=== PATIENT | male | born 1960 | race Caucasian/White ===

== ENCOUNTER 2021-04-20 09:39 | Outpatient (CLI) | payer OTHER, SELFPAY ==
[2021-04-20 12:59] LABS: ALT 44 U/L (16-63); AST 25 U/L (15-37); Albumin 4.1 g/dL (3.4-5.0); Alkaline Phosphatase 123 U/L (46-116); Anion Gap 11.4 mmol/L (3-11); BUN 21 mg/dL (7-18); Bilirubin, Total 0.6 mg/dL (0.2-1.0); CO2 27.6 mmol/L (21.0-32.0); CREATININE 1.3 mg/dL (0.70-1.30); Calcium 9.4 mg/dL (8.5-10.1); Calculated LDL 81 mg/dL (<100); Chloride 103 mmol/L (98-107); Cholesterol 153 mg/dL (<200); Glucose 183 mg/dL (74-106); HDL Cholesterol 57 mg/dL (40-60); Potassium 3.9 mmol/L (3.5-5.1); Sodium 142 mmol/L (136-145); Total Protein 6.8 g/dL (6.4-8.2); Triglyceride 75 mg/dL (<150)
[2021-04-20 13:04] LABS: Hemoglobin A1C 9.4 % (<5.7)
== END 2021-04-20 09:40 | disposition home or self-care (01) ==
LOC: LOS 09:39
PROVIDERS: PCP Nurse Practitioner Family; Referring Provider Nurse Practitioner Family; Visit Provider Nurse Practitioner Family
DX: Z00.00 Encounter for general adult medical examination without abnormal findings (principal); E10.9 Type 1 diabetes mellitus without complications; Z13.220 Encounter for screening for lipoid disorders
CPT/HCPCS: 36415; 80053; 80061; 83036

== ENCOUNTER 2021-05-09 01:17 | Outpatient (CLI) | payer OTHER, SELFPAY ==
--- NOTE | 2021-05-09 07:00 | DI.RAD_ITS ---
Exam(s) XR SHOULDER RT COMPLETE 2+V EXAM: XR SHOULDER RT COMPLETE 2+V CLINICAL HISTORY: Continued shoulder pain x 2 years,M25.511. TECHNIQUE: 2D digital imaging was performed. COMPARISON: No exams were available for comparison FINDINGS: There is no evidence fracture dislocation or abnormal soft tissue. Mild degenerative changes noted g lenohumeral and AC joints. Bone density is normal. There are no osseous lesions. IMPRESSION: DATA REPOSITORY: RADIATION DOSE DELIVERED:
== END 2021-05-09 01:37 ==
PROVIDERS: PCP Nurse Practitioner Family; Visit Provider Nurse Practitioner Family
DX: M19.011 Primary osteoarthritis, right shoulder (principal)
CPT/HCPCS: 73030

== ENCOUNTER 2021-09-19 01:03 | Outpatient (CLI) | payer OTHER, SELFPAY ==
--- NOTE | 2021-09-19 07:30 | DI.MRI_ITS ---
Exam(s) MR UPPER JOINT RT WO EXAM: MR UPPER JOINT RT WO CLINICAL HISTORY: r shoulder pain,ADHESIVE CAPSULITIS,RT ROTATOR CUFF TEAR,M75.01,M75.02, TECHNIQUE: Multiplanar multisequence MRI of the shoulder was performed. COMPARISON: CR XR SHOULDER RT COMPLETE 2+V from 05/09/2021 CR XR SHOULDER RT COMPLETE 2+V from 05/09/2021 FINDINGS: MARROW:There is no evidence of fracture, Hill-Sachs deformity, nor osseous Bankart lesion. ROTATOR CUFF MECHANISM: AC JOINT/ACROMIUM: There are moderate degenerative changes in the AC joint. Some impingement upon th e supraspinatus at this level. The undersurface of the acromion is flat. There is no undersurface i mpingement hook. There is no evidence of os acromiale. Supraspinatus: Tendinitis signal with superimposed partial thickness tearing. However, there is flui d in the subacromial-subdeltoid bursa, this indicating that there probably is a component of full-thi ckness tearing. There is no retraction musculotendinous junction. No muscle atrophy. Infraspinatus: Intact. No evidence of tear nor muscle atrophy. Teres Minor: Intact. No evidence of tear nor muscle atrophy. Subscapularis/anterior cuff: Intact. No abnormal signal at the level of the multipennate insertional fibers. No significant tear nor atrophy. BICEPS TENDON: Is split tearing of the biceps tendon within the intertubercular groove. Also some fluid within its tendon sheath LABRUM: Some increased intrasubstance signal is seen in the superior labrum posterior to the biceps i nsertion site consistent with element of SLAP tear. Tear does not appear to extend into the posterio r labrum. Anterior labrum appears intact. Inferior labrum appears intact. There is no evidence of paralabral cyst. Inferior glenohumeral ligament appears intact. There is no osseous Bankart lesion GLENOHUMERAL JOINT: Small amount of increased joint fluid extending into medial recess. No loose int ra-articular body. No degenerative subarticular cysts. No evidence of capsular tear. The inferior g lenohumeral ligament is intact. QUADRILATERAL SPACE: No evidence of mass in the region of the axillary nerve and dorsal circumflex hu meral vessels. Visualized triceps muscle at this level appears unremarkable. IMPRESSION: 1. Rotator cuff supraspinatus tendinitis with superimposed partial and small full-thickness tearing. Small amount of fluid evident in the subacromial-subdeltoid bursa. Other components of the rotator cuff mechanism appear intact. There is no muscle atrophy. There is some impingement at the level of the AC joint. 2. There is split tearing of the biceps tendon within the intertubercular groove and there is increas ed signal in the superior labrum consistent with mild SLAP tear. No paralabral cyst. No extension i nto the posterior labrum. No other labral tears nor evidence of bony Bankart lesion. DATA REPOSITORY:
== END 2021-09-19 01:23 ==
PROVIDERS: PCP Nurse Practitioner Family; Visit Provider Student in an Organized Health Care Education/Training Program
DX: M75.01 Adhesive capsulitis of right shoulder (principal); M75.02 Adhesive capsulitis of left shoulder; M75.101 Unspecified rotator cuff tear or rupture of right shoulder, not specified as traumatic; M75.41 Impingement syndrome of right shoulder; S46.211A Strain of muscle, fascia and tendon of other parts of biceps, right arm, initial encounter; S43.431A Superior glenoid labrum lesion of right shoulder, initial encounter
CPT/HCPCS: 73221

== ENCOUNTER 2021-11-16 03:09 | Outpatient (CLI) | payer BC, SELFPAY ==
[2021-11-16 12:00] LABS: Source Nasal/Nares
[2021-11-16 22:26] LABS: COVID-19 PCR Negative (Negative)
== END 2021-11-16 03:10 | disposition home or self-care (01) ==
LOC: LBO 03:09
PROVIDERS: PCP Nurse Practitioner Family; Visit Provider Surgery
DX: Z20.822 Contact with and (suspected) exposure to COVID-19 (principal)
CPT/HCPCS: 87635

== ENCOUNTER 2021-11-18 07:08 | Day surgery (SDC) | payer BC, SELFPAY ==
--- NOTE | 2021-11-17 10:22 | W.COLOREPORT ---
Colonoscopy Report Date of procedure: 11/18/21 Pre-op diagnosis general: CRC screen Post-op diagnosis procedure note: same Surgeon: Vianca Dewitt Anesthesia Type: General:No Airway Complications: None Disposition: same day Prep: Miralax/Dulcolax Retraction Time: 7 mins Procedure Description: After informed consent was obtained the patient was taken to the procedure room and placed in a left decubitous position. Monitors were applied and a time out was done. The patients name, date of , procedure, allergies to medications and metal in their body was reviewed. The patient was then sedated. Once sedated and comfortable a rectal exam was done. External exam was normal. Internal exam revealed a normal sphincter tone and no palpable masses. The scope was then introduced and retrofelexed. no internal hemorrhoids were identified. The scope was then advanced to the cecum w/out difficulty. The TI and appendiceal orifice were identified. The prep was BBPS-2. The scope was then slowly retracted over 7 minutes back into the rectum. There were no polyps, AVMs, or diverticula visualized today. the scope was removed and the patient was woken up and taken back to Same day surgery in stable condition. The patient tolerated the procedure well and there were no immediate complications. Follow up: The patient should follow up in 10 years unless they develop changes in bowel habits or other new gastrointestinal complaints.
--- NOTE | 2021-11-17 11:02 | W.PM.DSUDISC ---
Discharge Plan Disposition Patient Disposition: HOME Condition: Good Discharge Details Reason For Visit: [facility] Scre[facility] Attending Provider: Vianca Dewitt Primary Care Provider: Freddy Gómez Home Meds and New Rx's Prescriptions: No Action hydrochlorothiazide 25 mg tablet 25 mg PO DAILY Qty: 90 RF: 4 simvastatin 40 mg tablet 40 mg PO DAILY Qty: 90 RF: 4 multivitamin [Multiple Vitamins] Tablet 1 tab PO DAILY RF: 0 polyethylene glycol 3350 17 gram/dose powder 238 g PO ONCE Qty: 238 RF: 0 bisacodyl [Dulcolax (bisacodyl)] 5 mg tablet,delayed release (DR/EC) 5 mg PO ONCE Qty: 4 RF: 0 sildenafil (pulm.hypertension) 20 mg tablet 20 mg PO DAILY PRN RF: 0 (DME) FreeStyle Natalie 2 Sherman Misc See Rx Instructions .ROUTE .MEDSUPPLY Qty: 1 RF: 0 (DME) FreeStyle Natalie 2 Sensor Kit See Rx Instructions .ROUTE .MEDSUPPLY Qty: 6 RF: 3 (DME) pen needle, diabetic [Comfort EZ Pen Wilmer] 31 gauge x 1/4 needle See Rx Instructions .ROUTE .MEDSUPPLY Qty: 100 RF: 4 aspirin 81 mg tablet,delayed release (DR/EC) 81 mg PO DAILY RF: 0 Basaglar KwikPen U-100 Insulin 100 unit/mL (3 mL) insulin pen 76 unit subcut QAM Qty: 15 RF: 3 losartan 50 mg tablet 100 mg PO DAILY Qty: 180 RF: 3 Hold Instructions: Home Medication placed on hold at Doctor's office Fiasp FlexTouch U-100 Insulin 100 unit/mL (3 mL) insulin pen 16 unit subcut TID RF: 0 Discharge Instructions Additional Instructions: [facility] Colonoscopy Post-Op Instructions Instructions for Everyone who is given Anesthesia: For your safety, please do the following for the next twenty-four (24) hours: *Do Not operate a motor vehicle (car, truck, motorcycle, etc.) *Do Not drink alcoholic beverages or use any recreational drugs for the first 24 hours or while taking pain medications. The medications in your body may have a reaction that can be dangerous. *Do Not make any important decisions or sign any important papers. Findings:Normal Follow up: repeat in 10 yrs time 1. No lifting over 20 pounds or strenuous activity for the first 24 hours after your procedure. After 24 hours there are no restrictions on your activity but you may feel fatigued for a few days. 2. After you arrive home you may have a light meal and return to your normal diet as you can tolerate it without feeling sick to your stomach. 3. You may have a bloated, gaseous feeling in your belly (abdomen) after a colonoscopy. Passing gas and belching will help. Walking or lying down on your left side with your knees flexed may relieve the discomfort. Call the office at [phone] (Office) or [phone] (Hospital) right away if you notice any of the following: a.Vomiting of blood or ?coffee ground stools?. b.Rectal bleeding 1Tbsp, blood clots or continuous bleeding. c.Severe belly (abdominal) pain. d.A hard distended belly (abdomen) and an inability to pass gas. 4. Please don?t expect to have a normal BM (bowel movement) for 2-3 days after your procedure. 5. If there are questions regarding the findings of your procedure, please contact your doctor 6. If you are unable to contact your doctor with a problem, contact the hospital at [phone]. 7. Continue all your regular medications unless directed otherwise. I understand the above instructions and have no questions. Signature of Patient or Adult Escort Name of Responsible Adult Escort Signature of Nurse Date/Time Activity:: see above Diet:: Carb Counting Discharge Orders Discharge Orders: Discharge Order (Routine); Ordered 11/17/21 Ordered By: Vianca Dewitt DS: Diagnosis Discharge Diagnosis (1) Diabetes type I: Status: Acute (2) Screening for colon cancer: Status: Acute
[2021-11-18 07:24] VITALS: BP 112/66; PULSE 73; RESP 16; TEMP 36.3; O2SAT 98
[2021-11-18] MEDS: Lactated Ringers 1,000 ML 80 ML IV (07:48)
--- NOTE | 2021-11-18 07:58 | W.ANESPRE ---
General Info Date of Service Date Performed: 11/18/21 Height: 6 ft 2 in Weight: 103.8 kg Body Mass Index (BMI): 29.3 Surgical Procedure: Operation Date: 11/18/21 08:20 Proposed Procedures Side Surgeon stoney Dewitt, DO Meds Allergies and Home Medications Allergies Allergy/AdvReac Type Severity Reaction Status Date / Time Penicillins AdvReac Intermediate as a Kid Verified 11/15/21 15:01 no idea what reaction is. Home Medication Medication Instructions Recorded hydrochlorothiazide 25 mg tablet 25 mg PO DAILY #90 tab 04/20/21 simvastatin 40 mg tablet 40 mg PO DAILY #90 tab 04/20/21 pen needle, diabetic 31 gauge x #100 ea 06/03/2110/18 sildenafil (pulm.hypertension) 20 20 mg PO DAILY PRN tab 08/08/21 mg tablet aspirin 81 mg tablet,delayed 81 mg PO DAILY 09/06/21 release insulin glargine 100 unit/mL (3 76 unit SUBCUT QAM #15 ml 10/10/21 mL) subcutaneous pen flash glucose scanning reader #1 ea 11/02/21 flash glucose sensor #6 ea 11/02/21 bisacodyl 5 mg tablet,delayed 5 mg PO ONCE #4 tab 11/03/21 release multivitamin 1 tab PO DAILY 11/03/21 polyethylene glycol 3350 17 238 g PO ONCE #238 g 11/03/21 gram/dose oral powder losartan 50 mg tablet 100 mg PO DAILY #180 tab 11/09/21 insulin aspart (niacinamide) 16 unit SUBCUT TID 11/15/21 [Fiasp FlexTouch U-100 Insulin] Current Visit Medications: Current Medications Generic Name Dose Route Start Last Admin Trade Name Freq PRN Reason Stop Dose Admin Hyoscyamine Sulfate 0.125 mg 11/17/21 11:02 Hyoscyamine 0.125 Mg Sl/Oral/Chew SL DIRECTED PRN Ringer's Solution 1,000 mls @ 80 mls/hr 11/18/21 06:00 11/18/21 07:48 IV 12/12/21 23:59 80 mls/hr INFUSION CONSTANTINE Administration IV Miscellaneous Supplies 1 each 11/18/21 06:00 Iv Access IV 12/12/21 23:59 DIRECTED CONSTANTINE Ondansetron HCl 4 mg 11/17/21 11:02 Ondansetron 4 Mg/2 Ml Vial IVP Q4H PRN PRN Nausea / Vomiting Sodium Chloride 0 ml 11/18/21 06:00 Normal Saline Flush 10 Ml Syr IV 12/12/21 23:59 PRN PRN Sodium Chloride 0 ml 11/18/21 06:00 Normal Saline 10 Ml Vial IJ 12/12/21 23:59 DIRECTED PRN Sterile Water 0 ml 11/18/21 06:00 Water,Injection,Sterile 10 Ml Vial IJ 12/12/21 23:59 DIRECTED PRN PFSH Active Problems Active Problems: Problem Status Onset Code Diabetes type I E10.9 Screening for colon cancer Z12.11 Medical History Medical History Adhesive capsulitis of both shoulders Hyperlipidemia Hypertension Rotator cuff tear, right Uses self-applied continuous glucose monitoring device (L) Upper Posterior arm Medical History Comments:: Pt. reports taking a teaspoon of honey at 05:30am to manage BS Surgical History Surgical History (Updated 11/18/21 @ 07:37 by Sarah Lara RN) History of release of tendon Left wrist Tobacco Smoking/Tobacco Use Status: Never Passive smoking exposure: No Second hand exposure: No Alcohol Alcohol Intake: current Alcohol intake frequency: a few times a month Alcohol type: beer Substance Use Substance use: Never Substance use type: does not use and other Vital Signs and Lab Results Vital Signs Most Recent Vital Signs in EMR: Most Recent Vital Signs Temp Pulse Resp BP Pulse Ox 36.3 C L 73 16 112/66 98 11/18/21 07:24 11/18/21 07:24 11/18/21 07:24 11/18/21 07:24 11/18/21 07:24 Lab Results Blood Type / Crossmatch: No Data to Display Complete Blood Count: No Data to Display Complete Metabolic Panel: Hemoglobin A1c 8.2 % (4.5-5.7) H 11/07/21 08:51 11/07/21 Liver Function Panel: No Data to Display Coagulation Panel: No Data to Display Cardiac Panel: No Data to Display Arterial Blood Gas: No Data to Display Venous Blood Gas: No Data to Display Pancreas Panel: No Data to Display Thyroid Panel: No Data to Display Infectious Disease: Coronavirus (COVID-19)(PCR) Negative (Negative) 11/16/21 08:45 11/16/21 Coronavirus 2019 Source Nasal/Nares 11/16/21 08:45 11/16/21 Blood Cultures: No Data to Display Toxicology Panel: No Data to Display Anesthesia Assessment and Plan Anesthesia History Personal History: No History of Anesthesia Complications Family History: No Family History of Anesthesia Complications Exercise Tolerance Exercise Tolerance: Metabolic Equivalents>4 Pertinent Negatives Pertinent Negatives: No Symptoms of GERD, No Major Cardiovascular Symptoms or Complaints, No Major Pulmonary Symptoms or Complaints and No History of CVA/TIA Cardiac & Pulmonary Exam Cardiac Exam: Normal S1/S2 Heart Sounds Pulmonary Exam: Clear Bilateral Breath Sounds Implantable Cardiac Device Does patient have a Pacemaker or an ICD?: No Airway Exam Known Difficult Airway: No Mallampati Class: 2 Mouth Opening: Normal (> 3cm) Thyromental Distance: Greater than 3 cm Neck Range of Motion: Full ROM Neck Circumference: Normal Teeth Condition: Normal Dentition ASA Classification ASA Score: ASA 2 Emergency Case?: No NPO Status NPO Status: NPO Clears >2 hours, Solids >8 hours Anesthesia Plan Resuscitation Status: Full Code Anesthesia Technique: General Anesthesia Airway Planned: Natural Airway Monitors Used: Standard Monitors Preoperative Comments:: Patient type 1 diabetic.
[2021-11-18 08:20] VITALS: BMI 29.3
[2021-11-18 09:02] VITALS: BP 68/40; PULSE 71; RESP 16; TEMP 36.3; O2SAT 95
--- NOTE | 2021-11-18 09:03 | W.ANESPOSTOP ---
Postoperative Evaluation Date, Time and Location Date Performed: 11/18/21 Time Performed: 09:03 Patient Location: Day Surgery Unit Vital Signs Most Recent Imported Vital Signs: Most Recent Vital Signs Temp Pulse Resp BP Pulse Ox 36.3 C L 73 16 112/66 98 11/18/21 07:24 11/18/21 07:24 11/18/21 07:24 11/18/21 07:24 11/18/21 07:24 Pain Score Most Recent Pain Score: Most Recent Pain Score Pain Level 0 11/18/21 07:24 Assessment Mental Status: Arousable with meaningful communication Airway and Respiratory Function: Patent airway with normal (patient baseline) respiratory exam Cardiovascular Function: Hemodynamically Stable Hydration Status: Adequately Hydrated Nausea & Vomiting: No Nausea or Vomiting Pain: Pt. Denies Any Pain Peripheral Nerve Block: Patient did not receive a nerve block
[2021-11-18 09:28] VITALS: BP 115/69; PULSE 71; RESP 16; TEMP 36; O2SAT 99
== END 2021-11-18 10:15 | disposition home or self-care (01) ==
LOC: SUR 07:08
PROVIDERS: PCP Nurse Practitioner Family; Visit Provider Surgery
PROC: 0DJD8ZZ Inspection of Lower Intestinal Tract, Via Natural or Artificial Opening Endoscopic (ICD-10-PCS; CPT 45378; principal; 2021-11-18 08:15)
DX: Z12.11 Encounter for screening for malignant neoplasm of colon (principal); E10.9 Type 1 diabetes mellitus without complications; I10 Essential (primary) hypertension; E78.5 Hyperlipidemia, unspecified
CPT/HCPCS: 45378

== ENCOUNTER 2022-07-21 01:22 | Outpatient (CLI) | payer BC, SELFPAY ==
[2022-07-21 12:23] LABS: CREATININE 1.4 mg/dL (0.70-1.30); Potassium 3.6 mmol/L (3.5-5.1)
== END 2022-07-21 01:23 | disposition home or self-care (01) ==
LOC: LOS 01:22
PROVIDERS: PCP Nurse Practitioner Family; Visit Provider Nurse Practitioner Family
DX: E10.9 Type 1 diabetes mellitus without complications (principal); I10 Essential (primary) hypertension
CPT/HCPCS: 36415; 82565; 84132

== ENCOUNTER 2023-12-25 04:22 | Outpatient (CLI) | payer BC, SELFPAY ==
[2023-12-25 13:08] LABS: Hemoglobin A1C 8.2 % (<5.7)
== END 2023-12-25 04:23 | disposition home or self-care (01) ==
LOC: LOS 04:22
PROVIDERS: PCP Nurse Practitioner Family; Visit Provider Nurse Practitioner Family
DX: E10.9 Type 1 diabetes mellitus without complications (principal)
CPT/HCPCS: 36415; 83036

== ENCOUNTER 2024-03-28 01:56 | Outpatient (CLI) | payer BC, SELFPAY ==
[2024-03-28 12:46] LABS: ALT 32 U/L (16-63); AST 18 U/L (15-37); Albumin 4.1 g/dL (3.4-5.0); Alkaline Phosphatase 118 U/L (46-116); Anion Gap 9.5 mmol/L (3-11); BUN 17 mg/dL (7-18); Bilirubin, Total 0.5 mg/dL (0.2-1.0); CO2 29.5 mmol/L (21.0-32.0); CREATININE 1.6 mg/dL (0.70-1.30); Calcium 10.1 mg/dL (8.5-10.1); Chloride 99 mmol/L (98-107); Estimated GFR 48.72 (mL/min/1.73m2); Glucose 187 mg/dL (74-106); Potassium 3.3 mmol/L (3.5-5.1); Sodium 138 mmol/L (136-145); Total Protein 7.3 g/dL (6.4-8.2)
[2024-03-28 13:07] LABS: COMMENT (LAB VIEW ONLY) 152.16 mg/dL; Microalb ug/mg Crea 3.9 ug/mg Cr
== END 2024-03-28 01:57 | disposition home or self-care (01) ==
LOC: LOS 01:57
PROVIDERS: PCP Nurse Practitioner Family; Visit Provider Nurse Practitioner Family
DX: E10.9 Type 1 diabetes mellitus without complications (principal)
CPT/HCPCS: 36415; 80053; 82043; 82570

== ENCOUNTER 2024-06-20 01:17 | Outpatient (CLI) | payer BC, SELFPAY ==
[2024-06-20 07:29] LABS: Hemoglobin A1C 8.7 % (<5.7)
[2024-06-20 08:01] LABS: Anion Gap 6.8 mmol/L (3-11); BUN 15 mg/dL (7-18); CO2 31.2 mmol/L (21.0-32.0); CREATININE 1.4 mg/dL (0.70-1.30); Calcium 9.3 mg/dL (8.5-10.1); Calculated LDL 51 mg/dL (<100); Chloride 102 mmol/L (98-107); Cholesterol 123 mg/dL (<200); Estimated GFR 57.18 (mL/min/1.73m2); Glucose 124 mg/dL (74-106); HDL Cholesterol 53 mg/dL (40-60); Potassium 3.2 mmol/L (3.5-5.1); Sodium 140 mmol/L (136-145); Triglyceride 99 mg/dL (<150)
== END 2024-06-20 01:18 | disposition home or self-care (01) ==
LOC: LBO 01:17
PROVIDERS: PCP Nurse Practitioner Family; Visit Provider Nurse Practitioner Family
DX: E87.6 Hypokalemia (principal); Z13.1 Encounter for screening for diabetes mellitus; E10.9 Type 1 diabetes mellitus without complications; Z13.220 Encounter for screening for lipoid disorders; E78.2 Mixed hyperlipidemia
CPT/HCPCS: 36415; 80048; 80061; 83036

== ENCOUNTER 2024-09-08 02:29 | Outpatient (CLI) | payer BC, SELFPAY ==
[2024-09-08 07:37] LABS: Hemoglobin A1C 9.1 % (<5.7)
[2024-09-08 08:26] LABS: BUN 22 mg/dL (7-18); CREATININE 1.6 mg/dL (0.70-1.30); Calcium 9.7 mg/dL (8.5-10.1); Chloride 98 mmol/L (98-107); Estimated GFR 48.72 (mL/min/1.73m2); Glucose 259 mg/dL (74-106); Potassium 3.8 mmol/L (3.5-5.1); Sodium 135 mmol/L (136-145)
== END 2024-09-08 02:30 | disposition home or self-care (01) ==
LOC: LBO 02:29
PROVIDERS: PCP Nurse Practitioner Family; Visit Provider Nurse Practitioner Family
DX: E10.9 Type 1 diabetes mellitus without complications (principal); E87.6 Hypokalemia; Z51.81 Encounter for therapeutic drug level monitoring
CPT/HCPCS: 36415; 80048; 83036

== ENCOUNTER 2024-12-15 16:38 | Emergency (ER) | payer BC, SELFPAY ==
[2024-12-15] VITALS (98 sets, daily range): BP systolic 59–141; BP diastolic 33–76; PULSE 62–91; RESP 13–47; TEMP 30.2–31.3; O2SAT 83–100
--- NOTE | 2024-12-15 16:30 | RT.EKG_ITS ---
APPROVED REPORT Exam: Resting ECG Reason for Exam: [facility] Patient Location: E HR:65 bpm ECG Measurements Heart Rate 65 AXIS ND 189 P 0 QRSd 125 QRS 61 QT 464 T [id number] QTc 476 Conclusion Sinus rhythm...normal P axis, V-rate 60- 99 Atrial premature complex...SV complex w/ short R-R interval Nonspecific intraventricular conduction delay...QRSd >115mS, not LBBB/RBBB Repol abnrm suggests ischemia, diffuse leads...ST-T neg, ant/lat/inf
[2024-12-15] MEDS: Calcium Gluconate 4.65 MEQ/10 ML VIAL 4.65 MG IVP ×2 (16:36→16:50)
[2024-12-15] MEDS: Sodium Bicarbonate 50 MEQ/50 ML SYR IVP (16:37)
[2024-12-15] MEDS: Succinylcholine 200 MG/10 ML VIAL 100 MG IVP (16:42)
--- NOTE | 2024-12-15 16:45 | ED.GENADUL_ITS ---
Discharge Plan Disposition Patient Disposition: Transfer-Acute Inpatient Care Specific Acute Inpt Facility: [facility] [[email or web address]] Condition: Critical Discharge Details Clinical Impression: Diabetic keto-acidosis, Acute hyperkalemia, Cardiac asystole, Metabolic acidosis, Respiratory arrest, Diabetes type I, Acute renal failure (ARF) Primary Care Provider: Freddy Gómez ED Provider: Iván Toure Home Meds and New Rx's Prescriptions: No Action multivitamin [Multiple Vitamins] Tablet 1 tab PO DAILY (DME) FreeStyle Natalie 2 Carlisle Misc See Rx Instructions .ROUTE .MEDSUPPLY Qty: 1 0RF Rx Instructions: As directed (DME) pen needle, diabetic [Comfort EZ Pen Dalton] 31 gauge x 1/4 needle See Rx Instructions .Route Qty: 100 6RF Rx Instructions: Injection 4-6x daily as directed (DME) Dexcom G7 Sensor Device See Rx Instructions .Route Qty: 1 12RF Rx Instructions: As directed (DME) Dexcom G7 Wastewater Manager Misc See Rx Instructions .Route Qty: 1 0RF Rx Instructions: As directed aspirin 81 mg tablet,delayed release (DR/EC) 81 mg PO DAILY (DME) pen needle, diabetic [Comfort EZ Pen Dalton] 31 gauge x 1/4 needle See Rx Instructions .ROUTE .MEDSUPPLY Qty: 100 4RF Rx Instructions: Six times daily Jardiance 25 mg tablet 25 mg PO DAILY MDD 25 90 Days Qty: 90 4RF Rx Instructions: Take one 25 mg tablet once daily as directed insulin lispro [Humalog KwikPen Insulin] 100 unit/mL insulin pen 15 unit subcut TID MDD 50 90 Days Qty: 45 4RF Rx Instructions: Inject 15 mL subcutaneously with meals. May adjust as needed. simvastatin 40 mg tablet 40 mg PO DAILY Qty: 90 3RF Ozempic 1 mg/dose (4 mg/3 mL) pen injector 1 mg subcut QWEEK MDD 1.0 28 Days Qty: 3 12RF Rx Instructions: Inject 1.0 mg subcutaneously once weekly as directed (DME) Dexcom G7 Sensor Device See Rx Instructions .Route Qty: 3 12RF Rx Instructions: Apply to rear tricep as directed insulin lispro [Humalog U-100 Insulin] 100 unit/mL solution 120 unit subcut DAILY 90 Days Qty: 11 4RF Rx Instructions: Insulin for Tslim pump. Add insulin to reservoir. insulin lispro [Humalog U-100 Insulin] 100 unit/mL solution 120 unit subcut DAILY 90 Days Qty: 110 4RF Rx Instructions: Insulin for Tandem Tslim Insulin Pump (DME) FreeStyle Natalie 2 Sensor Kit See Rx Instructions .ROUTE .MEDSUPPLY Qty: 6 3RF Rx Instructions: As directed sildenafil (pulm.hypertension) 20 mg tablet 20 mg PO DAILY PRN Qty: 90 3RF Rx Instructions: administer doses at least 4-6 hours apart losartan 50 mg tablet 100 mg PO DAILY Qty: 180 3RF insulin glargine [Lantus Solostar U-100 Insulin] 100 unit/mL (3 mL) insulin pen 80 unit subcut QPM Qty: 75 4RF Rx Instructions: Inject subcutaneously as directed. (DME) Dexcom G7 Sensor Device See Rx Instructions .Route Qty: 3 12RF Rx Instructions: Place sensor on arm as directed hydrochlorothiazide 12.5 mg tablet 12.5 mg PO DAILY 90 Days Qty: 90 4RF Rx Instructions: Take one 12.5 mg tablet by mouth once daily as directed. insulin lispro [Humalog U-100 Insulin] 100 unit/mL solution 80 unit subcut DAILY 90 Days Qty: 80 4RF Rx Instructions: Tslim Pump Insulin @ initial 1.2 unit/hr basal rate with 7.8 g/unit CIR and 30 mg/dL:1 unit CF Discharge Data Discharge Physician: Iván Toure [facility] General Date/Time Provider Initiated Documentation: 12/15/24 16:45 . HPI Narrative: Patient presents via ambulance to the emergency department unresponsive. According to the and the paramedics since the patient who is a type I diabetic who had an insulin pump placed about 3 weeks ago and according to the 10 days ago he start developing flulike symptoms. He then started seeing that the pump was beeping and struck him he had high blood sugar which he thought was quite disturbing so he removed his insulin pump. She also states that he then started urinating and drinking a lot he was not urinating at all. She then said that he got confused yesterday so she called his doctor but she did not have any response and today she noticed he was getting lethargic so around 3:30 PM called the ambulance. Ambulance arrived and found him unresponsive initially with cook enchilada small respirations that were heavily and then he went apneic so they started bagging him and 100% got 2 large bore IVs gave him IV fluids his fingerstick was too high to read and brought into the emergency department when he went into cardiac arrest Related Data Home Medications ?Medication ?Instructions ?Recorded ?Confirmed aspirin 81 mg tablet,delayed 81 mg PO DAILY 09/06/21 12/15/24 release flash glucose scanning reader #1 ea 11/02/21 12/15/24 (FreeStyle Natalie 2 Carlisle) multivitamin (Multiple Vitamins 1 tab PO DAILY 11/03/21 12/15/24 tablet) pen needle, diabetic 31 gauge x #100 ea 05/31/22 12/15/24 14 (Comfort EZ Pen Dalton) flash glucose sensor (FreeStyle #6 ea 10/06/22 12/15/24 Natalie 2 Sensor kit) blood-glucose meter,continuous #1 ea 05/16/23 12/15/24 (Dexcom G7 Wastewater Manager) blood-glucose sensor (Dexcom G7 #1 ea 05/16/23 12/15/24 Sensor device) pen needle, diabetic 31 gauge x #100 ea 05/16/23 12/15/2410/18 (Comfort EZ Pen Dalton) sildenafil (pulm.hypertension) 20 20 mg PO DAILY PRN #90 tabs 11/15/23 12/15/24 mg tablet losartan 50 mg tablet 100 mg (2 x 50 mg) PO DAILY #180 01/16/24 12/15/24 tabs empagliflozin 25 mg tablet 25 mg PO DAILY 90 days #90 tabs 05/08/24 12/15/24 (Jardiance) insulin lispro 100 unit/mL 15 unit (0.15 mL) subcut TID 90 06/18/24 12/15/24 subcutaneous pen (Humalog #45 mL (U-100) Insulin) simvastatin 40 mg tablet 40 mg PO DAILY #90 tabs 06/18/24 12/15/24 insulin glargine 100 unit/mL (3 80 unit (0.8 mL) subcut QPM #75 mL 06/19/24 12/15/24 mL) subcutaneous pen (Lantus Solostar U-100 Insulin) semaglutide 1 mg/dose (4 mg/3 mL) 1 mg (0.75 mL) subcut QWEEK 28 07/16/24 12/15/24 subcutaneous pen injector (Ozempic) days #3 mL blood-glucose sensor (Dexcom G7 #3 ea 09/12/24 12/15/24 Sensor device) blood-glucose sensor (Dexcom G7 #3 ea 09/12/24 12/15/24 Sensor device) hydrochlorothiazide 12.5 mg tablet 12.5 mg PO DAILY 90 days #90 tabs 10/17/24 12/15/24 insulin lispro 100 unit/mL 80 unit (0.8 mL) subcut DAILY 11/18/24 12/15/24 subcutaneous solution (Humalog Insulin for Tandem Tslim Pump 90 U-100 Insulin) days #80 mL insulin lispro 100 unit/mL 120 unit (1.2 mL) subcut DAILY 90 12/05/24 12/15/24 subcutaneous solution (Humalog days #11 mL U-100 Insulin) insulin lispro 100 unit/mL 120 unit (1.2 mL) subcut DAILY 90 12/10/24 12/15/24 subcutaneous solution (Humalog days #110 mL U-100 Insulin) Previous Rx's ?Medication ?Instructions ?Recorded flash glucose scanning reader #1 ea 11/02/21 (FreeStyle Natalie 2 Carlisle) pen needle, diabetic 31 gauge x #100 ea 05/31/22 14 (Comfort EZ Pen Dalton) flash glucose sensor (FreeStyle #6 ea 10/06/22 Natalie 2 Sensor kit) blood-glucose meter,continuous #1 ea 05/16/23 (Dexcom G7 Wastewater Manager) blood-glucose sensor (Dexcom G7 #1 ea 05/16/23 Sensor device) pen needle, diabetic 31 gauge x #100 ea 05/16/23 14 (Comfort EZ Pen Dalton) sildenafil (pulm.hypertension) 20 20 mg PO DAILY PRN #90 tabs 11/15/23 mg tablet losartan 50 mg tablet 100 mg (2 x 50 mg) PO DAILY #180 01/16/24 tabs empagliflozin 25 mg tablet 25 mg PO DAILY 90 days #90 tabs 05/08/24 (Jardiance) insulin lispro 100 unit/mL 15 unit (0.15 mL) subcut TID 90 06/18/24 subcutaneous pen (Humalog KwikPen days #45 mL (U-100) Insulin) simvastatin 40 mg tablet 40 mg PO DAILY #90 tabs 06/18/24 insulin glargine 100 unit/mL (3 80 unit (0.8 mL) subcut QPM #75 mL 06/19/24 mL) subcutaneous pen (Lantus Solostar U-100 Insulin) semaglutide 1 mg/dose (4 mg/3 mL) 1 mg (0.75 mL) subcut QWEEK 28 07/16/24 subcutaneous pen injector (Ozempic) days #3 mL blood-glucose sensor (Dexcom G7 #3 ea 09/12/24 Sensor device) blood-glucose sensor (Dexcom G7 #3 ea 09/12/24 Sensor device) hydrochlorothiazide 12.5 mg tablet 12.5 mg PO DAILY 90 days #90 tabs 10/17/24 insulin lispro 100 unit/mL 80 unit (0.8 mL) subcut DAILY 11/18/24 subcutaneous solution (Humalog Insulin for Tandem Tslim Pump 90 U-100 Insulin) days #80 mL insulin lispro 100 unit/mL 120 unit (1.2 mL) subcut DAILY 90 12/05/24 subcutaneous solution (Humalog days #11 mL U-100 Insulin) insulin lispro 100 unit/mL 120 unit (1.2 mL) subcut DAILY 90 12/10/24 subcutaneous solution (Humalog days #110 mL U-100 Insulin) Allergies Allergy/AdvReac Type Severity Reaction Status Date / Time Penicillins AdvReac Intermediate as a Kid Verified 12/15/24 17:09 no idea what reaction is. Review of Systems Unobtainable due to mental condition Exam Narrative Exam Narrative: Exam; vitals signs as reported above normal severely bradycardic apneic unresponsive Constitutional; unresponsive to painful stimuli General: Unresponsive to painful stimuli cool to the touch hypothermic HEENT: Head: normal to inspection, no palpable skull fracture and normocephalic 2 small superficial wounds in his forehead that according to the are from yesterday when he bumped his head Eyes: : appearance normal, both eyes and all related structures EOM intact bilaterally Pupils: PERRL : conjunctiva normal Direct ophthalmoscopy: normal light reflex, normal conjunctiva, normal visual acuity Ears: Normal TM, normal external canal Nose: normal no rhinorreha Neck no JVD, supple non tender Neck: normal visual inspection, full ROM and no lymphadenopathy Chest: normal inspection of the chest Respiratory : No visible respiratory effort some rales in the left lung base with Ambu bag respirations Cardio Rate: Severely bradycardic rate no murmurs auscultated GI : normal to inspection, normal bowel sounds, soft, non tender, non distended, no organomegaly Back/Spine/ no CVA tenderness Thoracic/Lumbar Spine: no tenderness or deformities Skin no rashes or lesions Neuro: Unresponsive with no response to painful stimuli Extremities, no edema, full range of motion, normal strength : normal Rectal: Course Severely sick patient who came to the emergency department unresponsive who initially had Kussmaul respiration according to paramedics and then became apneic in the emergency department he had a heart rate in the 30s or 40s and on telemetry wide-complex and with suspicion of hyperkalemia besides IV fluids 2 large-bore IVs giving calcium chloride 2 A were given initially and 2 halves of bicarb the patient was intubated using RSI. His oxygen saturation was good and then the patient had a cardiac arrest which is a cyst systole. Bedside ultrasound showed sonographic asystole CPR was started he was given 2 rounds of epinephrine and atropine another 2 ampoules of bicarbonate and then after 10 min obtained a pulse. Norepinephrine drip was initiated and bedside echo was repeated showed a normal heart with contractility with no regional wall abnormalities mostly hyperdynamic. IVC collapsibility confirmed a very dehydrated hypovolemic patient and lung sonography did not show except for some infiltrate and left pleural effusion E-FAST exam does not show any free fluid in the pelvis and the bladder there is almost completely empty, he was continued to be hydrated aggressively with normal saline and later switched with D5 and bicarb due to the recommendations of the ICU attending Reevaluation(s) Time: 16:50 Reevaluation: Patient with now pressures between 180s systolic heart rate in the 70s who has arterial blood gases show a pH of 7.87 with very low bicarb and a very high space axis with normal pO2. IV fluids were continued and insulin drip has been given Time: 19:27 Additional Reevaluation(s): Patient who presented with severe DKA acidotic who required intubation and had a cardiac arrest that successfully was resuscitated with placement pulse he is now receiving IV fluids his blood sugars are still high but his sodium is now 131 his potassium was 4.4. He has been accepted at [facility] [[email or web address]] by the ICU attending who requested 2 more amps of bicarbonate will continue IV fluids with a commendation of D5 with 2 A of bicarb. He is on insulin drip and norepinephrine drip. He is critically ill although moving in the right direction maintaining his blood pressure at 100/70 and his heart rate in the 76 range. He just developed some B-lines in both lung lara as I read the ultrasound of his lung which will be watched to make sure he does not enter pulmonary edema. Consultations Consultation #1: Consulted [facility] who said no capacity for beds Time: 18:10 Consultation #2: Spoke with the ICU attending Dr. Emmanuel Cano who has accepted the patient and give some recommendations of treatment patient will be transferred to the ICU at [facility] [[email or web address]] ultimately via helicopter Time: 18:40 Procedure Airway Management Date of Procedure: 12/15/24 Time of Procedure: 16:38 Patient Consented: Emergent Case Indication: Apnea, Respiratory failure and Reduced level of consciousness Provider that performed the procedure: Iván Toure Mallampati Class: 2 Sedation administered by provider performing procedure: Yes. Induction setup: Pt. evaluated prior to induction, Apneic Oxygenation, Bag Valve Mask Ventilation and Rapid Sequence Induction Ultrasound: Used/Image Saved Airway Type: Intubation Grade: Pre Treatment Medication(indicate dose given): Other (etomidate) Paralytic(indicate dose given): Succinylcholine Gastric Tube: Not Placed Procedure Complications: None Procedure Outcome: Successful Medical Decision Making MDM: Summary: Patient who presented to the emergency department unresponsive went to cardiac arrest most likely from severe hyperkalemia and metabolic acidosis. He was treated initially with CPR but because he went to cardiac arrest which after calcium chloride and bicarbonate amps as well as epinephrine and atropine he was recessively resuscitated. He had been intubated as soon as came to the emergency department for he was unresponsive before he went into cardiac arrest. Aggressive IV fluid hydration, norepinephrine drip, insulin drip were initiated including ampoules of bicarbonate magnesium and calcium chloride. He was given empiric antibiotics but most likely is because of severe DKA and hyperkalemia who has been corrected. He has now been accepted at [facility] [[email or web address]] ICU for transfer. Data Review Analysis All the data on this patient was reviewed by me including laboratory and imaging studies as well as bedside studies performed by me Independent review of Studies Imaging Chest x-ray shows some scant bilateral infiltrates are the POCUS examination shows some B-lines on the left lung field. POCUS shows initially cardiac asystole but then a very strong hyperdynamic heart after resuscitation and norepinephrine and IV fluid hydration there is no regional wall abnormalities most likely hit her cardiac arrest was due to acidosis and hyperkalemia Lab: Labs show an elevated white blood cell count with an elevated BUN to creatinine ratio also initially hyperkalemia which has been correcting and hyponatremia that has been correcting in with her via very high glucose levels initially at 986 also ketones in the urine Risk Stratification: Patient who is severely ill critically ill after cardiac arrest due to severe acidosis and probably DKA will be transferred to a higher level of care with has been accepted at ICU at [facility] [[email or web address]] for further care Differential Diagnosis: 1. Severe hyperkalemia 2. Severe metabolic acidosis cardiac 3.arrest from acidosis and hyperkalemia 4. Diabetic ketoacidosis 5. Metabolic acidosis due to lactic acidosis Consultants: Consulted [facility] that initially did not have a bed and consulted the ICU attending at [facility] [[email or web address]] has accepted the patient and transferred Shared disposition: Family understand the need to transfer the patient out of an [facility] to [facility] [[email or web address]] and have accepted Impression: Medical Records Medical records reviewed: Yes I reviewed the patient's medical records. Lab Data Lab results reviewed: Yes I reviewed the patient's lab results. ECG Data Attestation: I personally reviewed and interpreted this ECG (s) as follows: Prior ECG tracings: available for review Core Measures AMI Core Measures Followed: No Quality:SDOH Health Related Social Needs: 2 No Data to Display Critical Care Time Critical Care Time Critical Care Time: Yes Total Critical Care Time: 85 Attestation: Critical care time postcardiac arrest with severe DKA penetration of the cardiovascular system so transferred to call back after first we need to call the helicopter I do not need to do just if there is a helicopter and he can feel these paperwork for flying so they are not flying to have a helicopter I do not I think they might have to try [facility] first to see if it first okay with [facility] All Active Problems (Updated 12/15/24 @ 20:03 by Iván Toure MD) Acute renal failure (ARF) (Acute) Respiratory arrest (Acute) Metabolic acidosis (Acute) Cardiac asystole (Acute) Acute hyperkalemia (Acute) Diabetic keto-acidosis (Acute) Hypertension (Chronic) Hyperlipidemia (Acute) Normal colonoscopy (Acute) Diabetes type I (Acute) Medical History Uses self-applied continuous glucose monitoring device (L) Upper Posterior arm Adhesive capsulitis of both shoulders Rotator cuff tear, right Surgical History History of colonoscopy (~11/18/21) History of release of tendon Left wrist Family History Mother , 87 Heart disease Father , 76 Diabetes Heart disease Hyperlipidemia Hypertension Sister No problems noted. Daughter No problems noted. Maternal Grandfather , 75 Stomach cancer Paternal Grandfather , 50 Diabetes Maternal Grandmother , 65 Breast cancer Paternal Grandmother , 93 Heart disease Social History Smoking/Tobacco Use Status: Never Second Hand Exposure: No Smoking risk assessment performed?: Yes Alcohol Intake: current Alcohol Intake frequency: a few times a month Alcohol type: beer and hard liquor Drug use: Never Substance use type: does not use and other Adopted: No Caregiver/Support person: No Household members: significant other Housing: house Communication Needs: None Do you need help understanding health information?: Never Pets and animals: Yes Pets and animals: cat(s), dog(s) and horse(s) Sexually active: Yes Do you think of yourself as: straight/heterosexual Current gender identity: male What is your relationship status?: living with partner How often do you talk on the phone with friends or family?: three or more times per week How often do you get together with friends or relatives?: twice per week How often do you attend zoroastrian or anglican services?: 1-3 times per year Do you belong to any clubs or organized social groups?: no Panel score (0-1 are the most socially isolated patients): 2 What type of physical activity do you participate in: walking and weight lifting Duration: 60-90 minutes/day Frequency: daily Lenore/Faith: Faith Special lenore needs: No Agree to transfusion: No Seatbelt use: always Helmet use: Yes Helmet use: always Drive intox or ride w/intox school bus driver/mechanic: No Do you feel safe at home: Yes Do you feel safe in your relationship?: Yes POCUS Exam (ED) Limited Cardiac Exam DATE OF EXAM: 12/15/24 TIME OF EXAM: 14:48 PROVIDER THAT PERFORMED THE STUDY: Iván Toure REASON FOR EXAM: Cardiac arrest VISUALIZED STRUCTURES: Four Chambers, Left atrium, Left ventricle, Right atrium, Right ventricle, Interventricular septum and IVC VIEW OBTAINED: Apical 4-Chamber, Parasternal long-axis and Parasternal short- axis PERTINENT FINDINGS/IMPRESSION: LV dysfunction DIFFERENTIAL DIAGNOSES: cardiac asystole Exam complete Efast Exam DATE OF EXAM: 12/15/24 TIME OF EXAM: 15:00 PROVIDER THAT PEFORMED THE STUDY: Iván Toure IS THIS A REPEAT EXAM DURING THIS ENCOUNTER: no REASON FOR EXAM: Hypotension VISUALIZED STRUCTURES: Hepatorneal space, Pelvis, Pericardium, Perisplenic space, Pleural space/left and Pleural space/right PERTINENT FINDINGS/IMPRESSION: apparent free fluid, hepatorenal space, pelvis and perisplenic space and pneumothorax, left side DIFFERENTIAL DIAGNOSES: IVC flat Limited Transthoracic Echo: Exam complete Limited Abdominal Exam: Exam complete Limited Retroperitoneal Exam: Exam complete TAFOYA Exam DATE OF EXAM: 12/15/24 TIME OF EXAM: 15:30 PROVIDER THAT PERFORMED THE STUDY: Iván Toure IS THIS A REPEAT EXAM DURING THIS ENCOUNTER: Yes, Same provider REASON FOR EXAM: Hypotension VISUALIZED STRUCTURES: Aorta, Bladder, Cardiac Four Chambers, Heart, Inferior Vena Cava, Lung/left side, Lung/right side, Samuel's pouch, Renal artery and Other structures: Echo all, abdomen, pelvis, thorax PERTINENT FINDINGS/IMPRESSION: Pleural effusion, left side and Other (Postcardiac arrest hyperdynamic heart) impression: Hyperdynamic left ventricle postcardiac arrest Echocardiography/Transthoracic Limited Exam: Exam Complete Chest Limited Exam: Exam Complete Abdominal Limited Exam: Exam Complete Retroperitoneal Limited Exam: Exam Complete Limited Thoracic Lung Exam DATE OF EXAM: 12/15/24 TIME OF EXAM: 15:20 PROVIDER THAT PERFORMED THE STUDY: Iván Toure IS THIS A REPEAT EXAM DURING THIS ENCOUNTER: No REASON FOR EXAM: Hypotension VISUALIZED STRUCTURES: right anterior, left anterior, right lateral, left lateral and left posterior PERTINENT FINDINGS/IMPRESSION: B-lines/left side and Left pleural effusion Exam complete Vital Signs & Lab Results Vital Signs Most Recent Vital Signs: Most Recent Vital Signs Temp Pulse Resp BP Pulse Ox 30.9 C L 76 20 99/53 L 90 L 12/15/24 18:43 12/15/24 18:43 12/15/24 19:07 12/15/24 19:07 12/15/24 19:07 Point of Care Results Nursing Point of Care Results: 2 No Data to Display Lab Results 12/15/24 16:50 12/15/24 18:39 Blood Type / Crossmatch: 2 No Data to Display Complete Blood Count: 2 White Blood Count 37.85 10^3/uL (4.4-10.8) H* 12/15/24 16:50 Red Blood Count 3.92 10^6/uL (4.36-5.78) L 12/15/24 16:50 Hemoglobin 11.3 g/dL (13.5-17.5) L 12/15/24 16:50 Hematocrit 41.7 % (40.0-50.0) 12/15/24 16:50 Platelet Count 359 10^3/uL (130-400) 12/15/24 16:50 Complete Metabolic Panel: 2 Sodium 131 mmol/L (136-145) L 12/15/24 18:39 Potassium 4.5 mmol/L (3.5-5.1) 12/15/24 18:39 Chloride 94 mmol/L (98-107) L 12/15/24 18:39 Carbon Dioxide 9.9 mmol/L (21.0-32.0) L 12/15/24 18:39 BUN 62 mg/dL (7-18) H 12/15/24 18:39 Creatinine 3.3 mg/dL (0.70-1.30) H 12/15/24 18:39 Est GFR (CKD-EPI 2020) 20.31 (mL/min/1.73m2) 12/15/24 18:39 Magnesium 2.5 mg/dL (1.8-2.4) H 12/15/24 16:50 Calcium 8.4 mg/dL (8.5-10.1) L 12/15/24 18:39 Albumin 1.9 g/dL (3.4-5.0) L 12/15/24 16:50 Glucose mg/dL (74-106) 12/15/24 18:39 Liver Function Panel: 2 Alanine Aminotransferase (ALT/SGPT) 24 U/L (16-63) 12/15/24 16: 50 Aspartate Amino Transf (AST/SGOT) 53 U/L (15-37) H 12/15/24 16: 50 Coagulation Panel: 2 No Data to Display Cardiac Panel: 2 No Data to Display Arterial Blood Gas: 2 Arterial Blood Gas Sample Site Right Brachial 12/15/24 17:34 Arterial Blood pH 6.87 (7.35-7.45) L* 12/15/24 17:34 Arterial Blood pO2 148 mmHg (80-105) H 12/15/24 17:34 Arterial Blood pCO2 36 mmHg (35-45) 12/15/24 17:34 Arterial Blood Oxygen Saturation 98 % (95-98) 12/15/24 17:34 Arterial Blood HCO3 7 mmol/L (22-26) L 12/15/24 17:34 Arterial Blood Base Excess -27 mmol/L (-2-3) L 12/15/24 17:34 Arterial Blood Total CO2 7 mmol/L (23-27) L 12/15/24 17:34 Venous Blood Gas: 2 Venous Blood pH 6.83 (7.31-7.41) L* 12/15/24 18:39 Venous Blood Partial Pressure O2 65 mmHg 12/15/24 18:39 Venous Blood Partial Pressure CO2 42 mmHg (41-51) 12/15/24 18:3 9 Venous Blood Oxygen Saturation 82 % 12/15/24 18:39 Venous Blood HCO3 7 mmol/L (23-28) L 12/15/24 18:39 Venous Blood Base Excess -27 mmol/L (-2-3) L 12/15/24 18:39 Venous Blood Total Carbon Dioxide 8 mmol/L (24-29) L 12/15/24 1 8:39 Pancreas Panel: 2 Lipase 668 U/L (<78) H 12/15/24 16:50 Thyroid Panel: 2 No Data to Display Infectious Disease: 2 Influenza Virus Type A (PCR) Pending 12/15/24 19:15 Influenza Virus Type B (PCR) Pending 12/15/24 19:15 Respiratory Syncytial Virus (PCR) Pending 12/15/24 19:15 Blood Cultures: 2 No Data to Display Toxicology Panel: 2 No Data to Display Cardiac Arrest/CPR Medical Decision Making Medical decision making narrative: Patient who came in with probably severe hypokalemia and acidosis went to cardiac arrest CPR was initiated was given 2 A of epinephrine and we got spontaneous pulse after calcium chloride and bicarbonate. Bedside echo initially shows sonographic asystole that was recorded and then after successful CPR he came with spontaneous contractility of the heart with no regional abnormalities. Differential Diagnosis cardiac arrest Medical Records Medical records reviewed: Yes I reviewed the patient's medical records. Lab Data Lab results reviewed: Yes I reviewed the patient's lab results. 12/15/24 16:50 12/15/24 18:39 Lab Results 12/15/24 12/15/24 12/15/24 Range/Units 16:50 16:55 17:34 WBC 37.85 H* (4.4-10.8) 10^3/uL RBC 3.92 L (4.36-5.78) 10^6/uL Hgb 11.3 L (13.5-17.5) g/dL Hct 41.7 (40.0-50.0) % MCV 106 H (80-95) fL MCH 28.8 (27.0-33.0) pg MCHC 27.1 L (32.0-36.0) % RDW 13.5 (11.8-14.1) % Plt Count 359 (130-400) 10^3/uL MPV 10.9 (8.0-11.0) fL Immature Gran % See Differential Neutrophils % 73.0 % Band Neutrophils % 3 % Lymphocytes % 7.0 % Atypical Lymphs % 5 % Monocytes % 5.0 % Eosinophils % 0.0 % Basophils % 0.0 % Metamyelocytes % 3 Myelocytes % 4 Nucleated RBC % 0.0 (0.0-0.3) % Absolute Neutrophils 28.77 H (1.2-6.7) 10^3/uL Absolute Lymphocytes 4.54 H (1.2-3.4) 10^3/uL Absolute Monocytes 1.89 H (0.1-0.8) 10^3/uL Absolute Eosinophils 0.00 (0.0-0.7) 10^3/uL Absolute Basophils 0.00 (0.0-0.2) 10^3/uL RBC Morphology See Below Macrocytosis 1+ ABG Sample Site Cancelled Right Brachial ABG pH Cancelled 6.87 L* ABG pCO2 Cancelled 36 ABG pO2 Cancelled 148 H ABG HCO3 Cancelled 7 L ABG Total CO2 Cancelled 7 L ABG O2 Saturation Cancelled 98 ABG Base Excess Cancelled -27 L VBG pH (7.31-7.41) VBG pCO2 (41-51) mmHg VBG pO2 mmHg VBG HCO3 (23-28) mmol/L VBG Total CO2 (24-29) mmol/L VBG O2 Saturation % VBG Base Excess (-2-3) mmol/L Oxygen Liter Flow Cancelled FiO2 Cancelled 100 Sodium 123 L* (136-145) mmol/L Potassium 5.4 H (3.5-5.1) mmol/L Chloride 86 L (98-107) mmol/L Carbon Dioxide 5.2 L (21.0-32.0) mmol/L Anion Gap 32.8 H (3-11) mmol/L BUN 56 H (7-18) mg/dL Creatinine 3.1 H (0.70-1.30) mg/dL Est GFR (CKD-EPI 2020) 21.89 (mL/min/1.73m2) Glucose 987 H* (74-106) mg/dL Calcium 7.6 L (8.5-10.1) mg/dL Magnesium 2.5 H (1.8-2.4) mg/dL Total Bilirubin 0.47 (0.2-1.0) mg/dL AST 53 H (15-37) U/L ALT 24 (16-63) U/L Alkaline Phosphatase 97 (46-116) U/L Total Protein 3.7 L (6.4-8.2) g/dL Albumin 1.9 L (3.4-5.0) g/dL Lipase 668 H (<78) U/L Urine Color (Yellow) Urine Clarity (Clear) Urine pH (5-8) Ur Specific [place] (1.005-1.025) Urine Protein (Neg-Trace) mg/dL Urine Ketones (Negative) mg/dL Urine Blood (Negative) Urine Nitrite (Negative) Urine Bilirubin (Negative) Urine Urobilinogen (Up to 0.2) mg/dL Ur Leukocyte Esterase (Negative) Urine RBC (0-2) HPF Urine WBC (0-5) HPF Ur Epithelial Cells (Negative) HPF Urine Crystals (Negative) HPF Urine Bacteria (Negative) HPF Urine Casts (Negative) LPF Urine Mucus (Negative) Ur Culture Indicated? Urine Glucose (Negative) mg/dL 12/15/24 12/15/24 Range/Units 18:16 18:39 WBC (4.4-10.8) 10^3/uL RBC (4.36-5.78) 10^6/uL Hgb (13.5-17.5) g/dL Hct (40.0-50.0) % MCV (80-95) fL MCH (27.0-33.0) pg MCHC (32.0-36.0) % RDW (11.8-14.1) % Plt Count (130-400) 10^3/uL MPV (8.0-11.0) fL Immature Gran % Neutrophils % % Band Neutrophils % % Lymphocytes % % Atypical Lymphs % % Monocytes % % Eosinophils % % Basophils % % Metamyelocytes % Myelocytes % Nucleated RBC % (0.0-0.3) % Absolute Neutrophils (1.2-6.7) 10^3/uL Absolute Lymphocytes (1.2-3.4) 10^3/uL Absolute Monocytes (0.1-0.8) 10^3/uL Absolute Eosinophils (0.0-0.7) 10^3/uL Absolute Basophils (0.0-0.2) 10^3/uL RBC Morphology Macrocytosis ABG Sample Site ABG pH ABG pCO2 ABG pO2 ABG HCO3 ABG Total CO2 ABG O2 Saturation ABG Base Excess VBG pH 6.83 L* (7.31-7.41) VBG pCO2 42 (41-51) mmHg VBG pO2 65 mmHg VBG HCO3 7 L (23-28) mmol/L VBG Total CO2 8 L (24-29) mmol/L VBG O2 Saturation 82 % VBG Base Excess -27 L (-2-3) mmol/L Oxygen Liter Flow FiO2 Sodium 131 L (136-145) mmol/L Potassium 4.5 (3.5-5.1) mmol/L Chloride 94 L (98-107) mmol/L Carbon Dioxide 9.9 L (21.0-32.0) mmol/L Anion Gap 27.1 H (3-11) mmol/L BUN 62 H (7-18) mg/dL Creatinine 3.3 H (0.70-1.30) mg/dL Est GFR (CKD-EPI 2020) 20.31 (mL/min/1.73m2) Glucose (74-106) mg/dL Calcium 8.4 L (8.5-10.1) mg/dL Magnesium (1.8-2.4) mg/dL Total Bilirubin (0.2-1.0) mg/dL AST (15-37) U/L ALT (16-63) U/L Alkaline Phosphatase (46-116) U/L Total Protein (6.4-8.2) g/dL Albumin (3.4-5.0) g/dL Lipase (<78) U/L Urine Color Yellow (Yellow) Urine Clarity Clear (Clear) Urine pH 5.0 (5-8) Ur Specific [place] 1.015 (1.005-1.025) Urine Protein 100 H (Neg-Trace) mg/dL Urine Ketones 40 H (Negative) mg/dL Urine Blood Moderate H (Negative) Urine Nitrite Negative (Negative) Urine Bilirubin Negative (Negative) Urine Urobilinogen 0.2 (Up to 0.2) mg/dL Ur Leukocyte Esterase Negative (Negative) Urine RBC 10-20 H (0-2) HPF Urine WBC 0-2 (0-5) HPF Ur Epithelial Cells Rare (Negative) HPF Urine Crystals Negative (Negative) HPF Urine Bacteria Rare (Negative) HPF Urine Casts Negative (Negative) LPF Urine Mucus Trace (Negative) Ur Culture Indicated? No Urine Glucose 500 H (Negative) mg/dL EKG Data EKG attestation: Yes I reviewed and interpreted this EKG. EKG results narrative: asystole Rhythm: other (asystole) Core Measures AMI Core Measures Followed: No Measure Exclusions: not indicated
[2024-12-15] MEDS: Calcium Chloride 1000 MG/10 ML SYR IVP ×2 (16:50→16:53)
[2024-12-15] MEDS: Atropine 1 MG/10 ML SYRINGE IVP (16:53)
[2024-12-15] MEDS: Norepinephrine in D5W 8 MG/250 ML BAG 9.4 MG IV (17:00)
[2024-12-15] MEDS: Calcium Chloride 1000 MG/10 ML SYR (17:01)
[2024-12-15] MEDS: Normal Saline 1,000 ML 2000 ML IV ×6 (17:07→22:00)
[2024-12-15] MEDS: Sodium Bicarbonate 50 MEQ/50 ML VIAL ×2 (17:09→21:52)
[2024-12-15] MEDS: Normal Saline 1,000 ML 1000 ML IV ×7 (17:20→22:32)
--- NOTE | 2024-12-15 17:24 | DI.RAD_ITS ---
Exam(s) XR PORTABLE CHEST AP EXAM: XR PORTABLE CHEST AP CLINICAL HISTORY: post intubation TECHNIQUE: 2D digital imaging was performed. COMPARISON: No exams were available for comparison FINDINGS: Lungs are suboptimally inflated. The film is rotated. LUNGS: Increased bilateral pulmonary densities. No pleural abnormality seen. HEART: Size is difficult to assess due to limited pulmonary inflation and rotation. AORTA: Normal diameter. BONES: Unremarkable for age. Soft tissues: An endotracheal tube has been inserted with the tip lying above the ronnie. IMPRESSION: Satisfactory placement of endotracheal tube. Spot suboptimal pulmonary inflation. There are bilateral increased pulmonary densities could represe nt CHF versus a pneumonitis. DATA REPOSITORY: RADIATION DOSE DELIVERED:
[2024-12-15] MEDS: Normal Saline 100 ML 200 ML (17:33)
[2024-12-15] MEDS: VANCOMYCIN 2,000 MG in Normal Saline 500 ML 250 MG IVPB (17:37)
[2024-12-15 17:39] LABS: BE -27 mmol/L (-2-3); HCO3 7 mmol/L (22-26); pCO2 36 mmHg (35-45); pO2 148 mmHg (80-105); sO2 98 % (95-98); tCO2 7 mmol/L (23-27)
[2024-12-15 17:40] LABS: Site Right Brachial
[2024-12-15 17:41] LABS: FIO2 100 %
[2024-12-15 17:42] LABS: pH 6.87 (7.35-7.45)
[2024-12-15 17:47] LABS: HCT 41.7 % (40.0-50.0); HGB 11.3 g/dL (13.5-17.5); MCH 28.8 pg (27.0-33.0); MCHC 27.1 % (32.0-36.0); MCV 106 fL (80-95); MPV 10.9 fL (8.0-11.0); Platelet Count 359 10^3/uL (130-400); RBC 3.92 10^6/uL (4.36-5.78); RDW 13.5 % (11.8-14.1); RDW-SD 53.1 fL
[2024-12-15 17:53] LABS: Chloride 86 mmol/L (98-107); Magnesium 2.5 mg/dL (1.8-2.4); Potassium 5.4 mmol/L (3.5-5.1)
[2024-12-15 17:54] LABS: Sodium 123 mmol/L (136-145)
[2024-12-15] MEDS: MAGNESIUM SULFATE 4 GM/100 ML BAG IV_INF (17:56)
[2024-12-15 17:57] LABS: ALT 24 U/L (16-63); AST 53 U/L (15-37); Albumin 1.9 g/dL (3.4-5.0); Alkaline Phosphatase 97 U/L (46-116); Anion Gap 32.8 mmol/L (3-11); BUN 56 mg/dL (7-18); Bilirubin, Total 0.47 mg/dL (0.2-1.0); CO2 5.2 mmol/L (21.0-32.0); CREATININE 3.1 mg/dL (0.70-1.30); Calcium 7.6 mg/dL (8.5-10.1); Estimated GFR 21.89 (mL/min/1.73m2); Total Protein 3.7 g/dL (6.4-8.2)
[2024-12-15] MEDS: INSULIN REGULAR IN 0.9 % NACL 100 UNIT/100 ML BAG 10 UNIT IVINF (18:00)
[2024-12-15 18:04] LABS: Glucose 987 mg/dL (74-106)
--- NOTE | 2024-12-15 18:05 | NUR.NOTE ---
Pt Summary of events: BIBA via EMS after report of AMS and hyperglycemia. Reported pt has T1DM, onset at 7 years old. Pt has had the flu for 3 weeks, reported vomiting. Arrived, periarrest at 1635, BGL reads high, meaning over 600. EMS reported end tidal CO2 7. Received full liter of NS RN DISCHARGE. Pt weighed via bed scale - 98.1 kg 1636 - 1 gram calcium gluconate 1637 - 50 mEq sodium bicarb 1640 - 20 mg etomidate for RSI 1642 - 100 mg succinocholine 1642 - intubation, 7.5 ETT, 24 at the teeth. Stabilizer placed by RT. 1645 - labs drawn 1646 - BGL, still reading HIigh 1648 - lost pulse - CODE BLUE. Compressions initiated. Asystole. 1650 - 1 gram calcium gluconate 1640 - 50 mEq sodium bicarb 1651 - Defib pads placed. 1651 - 1 gram epi 1651 - pulse check, no pulse 1652 - RUTH mechanical CPR device placed and activated 1653 - 1 mg atropine 1653 - calcium chloride 1655 - pulse check 1656 - 1 mg epinephrine 1656 - pulse check, has pulse 1657 - sodium bicarbonate 1659 - 10 units insulin 1700 - norepi initiated at 5 mcg/min 1701 - good pleth, SpO2 100% 1702 - B/P 175/82 1705 - HR 91 1706 - Portable CXR, defib pads removed 1709 - 50 mEq sodium bicarbonate 1710 - norepi increased to 8 mcg/min 1714 - 10 inuts regular insulin 1720 - norepi increased to 10 mcg/min 1720 - 2 more liters of NS initiated 1721 - norepi increased to 20 mcg/min 1722 - temp sensing prieto inseted, 16 macedonian, 10 cc balloon. temp 30.2 C 1725 - norepi increased to 30 mcg/min 1728 - BGL reading High 1729 - 10 units insulin 1733 - 3.375 g Zosyn 1736 - 2 grams vancomycin initiated 1737 - 10 units insulin 1800 - insulin infusion started at 10 units/hour 1818 - 20 units regular insulin 1828 - 2 more liters of LR placed, wide open. 1830 - 250 urine output recorded. Yellow. Will continue to add with addendum. Mauro Eric, SUKHJINDERN, RN. 1656 - pulse check 1657 - 4 g magnesium sulfate 1Nursing Note:
[2024-12-15 18:07] LABS: Bands % 3 %
[2024-12-15 18:08] LABS: Absolute Lymphocyte Count 4.54 10^3/uL (1.2-3.4); Absolute Monocyte Count 1.89 10^3/uL (0.1-0.8); Atypical Lymphocytes % 5 %; Metamyelocytes % 3; Myelocytes % 4
[2024-12-15 18:09] LABS: Absolute Neutrophil Count 28.77 10^3/uL (1.2-6.7); Diff Comment Manual Differential; Macrocytosis 1+; WBC 37.85 10^3/uL (4.4-10.8)
[2024-12-15 18:14] LABS: Lipase 668 U/L (<78)
[2024-12-15] MEDS: Insulin REGULAR-Human 100 UNITS/ML UNIT 20 UNITS IV (18:14)
[2024-12-15] MEDS: Lactated Ringers 1,000 ML 1000 ML IV ×2 (18:28→19:28)
[2024-12-15 18:38] LABS: Bilirubin Negative (Negative); Blood Moderate (Negative); Clarity Clear (Clear); Glucose 500 mg/dL (Negative); Ketones 40 mg/dL (Negative); Leukocyte Esterase Negative (Negative); Nitrite Negative (Negative); Specific Gravity 1.015 (1.005-1.025); Urobilinogen 0.2 mg/dL (Up to 0.2)
[2024-12-15 18:44] LABS: BE (Venous) -27 mmol/L (-2-3); HCO3 (Venous) 7 mmol/L (23-28); O2 Sat (Venous) 82 %; TCO2 (Venous) 8 mmol/L (24-29); pCO2 (Venous) 42 mmHg (41-51); pO2 (Venous) 65 mmHg
[2024-12-15 18:45] LABS: pH (Venous) 6.83 (7.31-7.41)
[2024-12-15 18:51] LABS: Bacteria Rare HPF (Negative); C & S Indicated? No; Casts Negative LPF (Negative); Crystals Negative HPF (Negative); Epithelial Cells Rare HPF (Negative); Mucus Trace (Negative); WBC 0-2 HPF (0-5)
[2024-12-15 18:58] LABS: Anion Gap 27.1 mmol/L (3-11); BUN 62 mg/dL (7-18); CO2 9.9 mmol/L (21.0-32.0); CREATININE 3.3 mg/dL (0.70-1.30); Calcium 8.4 mg/dL (8.5-10.1); Chloride 94 mmol/L (98-107); Estimated GFR 20.31 (mL/min/1.73m2); Potassium 4.5 mmol/L (3.5-5.1); Sodium 131 mmol/L (136-145)
[2024-12-15] MEDS: DEXTROSE 5%-WATER 250 ML 200 ML ×2 (19:04→20:45)
[2024-12-15] MEDS: Etomidate 20 MG/10 ML VIAL (19:57)
[2024-12-15] MEDS: Piperacillin/Tazobactam 3.375 GM VIAL (20:01)
[2024-12-15] MEDS: Insulin REGULAR-Human 100 UNITS/ML UNIT ×5 (20:11→20:15)
[2024-12-15 20:22] LABS: COVID-19 PCR Negative (Negative); Influenza A PCR Negative (Negative); Influenza B PCR Negative (Negative); RSV PCR Negative (Negative)
[2024-12-15 20:30] LABS: Anion Gap 23.1 mmol/L (3-11); BUN 56 mg/dL (7-18); CO2 11.9 mmol/L (21.0-32.0); CREATININE 2.8 mg/dL (0.70-1.30); Calcium 7.4 mg/dL (8.5-10.1); Chloride 100 mmol/L (98-107); Estimated GFR 24.74 (mL/min/1.73m2); Potassium 3.9 mmol/L (3.5-5.1); Sodium 135 mmol/L (136-145)
[2024-12-15 20:33] LABS: Source Nasopharynx
[2024-12-15 20:49] LABS: Glucose 790 mg/dL (74-106)
[2024-12-15] MEDS: INSULIN REGULAR IN 0.9 % NACL 100 UNIT/100 ML BAG 10 UNIT (21:11)
== END 2024-12-15 21:28 | disposition short-term general hospital (02) ==
PROVIDERS: Emergency Provider Emergency Medicine Emergency Medical Services; PCP Nurse Practitioner Family
DX: E10.10 Type 1 diabetes mellitus with ketoacidosis without coma (principal); I46.9 Cardiac arrest, cause unspecified; R09.2 Respiratory arrest; E87.21 Acute metabolic acidosis; N17.9 Acute kidney failure, unspecified; E87.5 Hyperkalemia; Z96.41 Presence of insulin pump (external) (internal); Z79.4 Long term (current) use of insulin; Z79.899 Other long term (current) drug therapy; I10 Essential (primary) hypertension; E78.5 Hyperlipidemia, unspecified
CPT/HCPCS: 31500; 76604; 76705; 76775; 76857; 80048; 80053; 82805; 82962; 83690; 87637; 92950; 93005; 93308; 96365; 96366; 96368; 96375; 99291; 71045; 81003; 81015; 83735; 85025; 93010; 99282; J0330; J0461; J0612; J1815; J2543; J3370; J3475

== ENCOUNTER 2025-03-06 11:12 | Outpatient (RCR) | payer BC, SELFPAY ==
--- NOTE | 2025-03-06 11:00 | RT.EKG_ITS ---
APPROVED REPORT Exam: Resting ECG Reason for Exam: Baseline Patient Location: O HR:59 bpm ECG Measurements Heart Rate 59 AXIS CO 137 P 70 QRSd 101 QRS 106 QT 425 T 95 QTc 421 Conclusion Sinus rhythm...normal P axis, V-rate 50- 99 Probable lateral infarct, age indeterminate...Q >35mS, T neg, V5-V6 I aVL May have limb lead reversal
== END 2025-03-14 23:59 | disposition home or self-care (01) ==
LOC: CR 11:12
PROVIDERS: PCP Nurse Practitioner Family; Visit Provider Internal Medicine Cardiovascular Disease
DX: Z51.89 Encounter for other specified aftercare (principal); Z95.5 Presence of coronary angioplasty implant and graft; I21.4 Non-ST elevation (NSTEMI) myocardial infarction; I50.20 Unspecified systolic (congestive) heart failure
CPT/HCPCS: S9472

== ENCOUNTER 2025-03-13 10:00 | Outpatient (RCR) | payer BC, SELFPAY | END 2025-03-14 23:59 | disposition home or self-care (01) | LOC: CR 10:00 | PROVIDERS: PCP Nurse Practitioner Family; Visit Provider Internal Medicine Cardiovascular Disease | DX: I50.20 Unspecified systolic (congestive) heart failure (principal); I21.4 Non-ST elevation (NSTEMI) myocardial infarction; Z95.5 Presence of coronary angioplasty implant and graft; Z51.89 Encounter for other specified aftercare | CPT/HCPCS: S9472 ==

== ENCOUNTER 2025-04-13 10:00 | Outpatient (RCR) | payer BC, SELFPAY | END 2025-04-13 23:59 | disposition home or self-care (01) | LOC: CR 10:00 | PROVIDERS: PCP Nurse Practitioner Family; Visit Provider Internal Medicine Cardiovascular Disease | DX: I21.4 Non-ST elevation (NSTEMI) myocardial infarction (principal); Z95.5 Presence of coronary angioplasty implant and graft; Z51.89 Encounter for other specified aftercare | CPT/HCPCS: S9472 ==

== ENCOUNTER 2025-05-13 10:00 | Outpatient (RCR) | payer BC, SELFPAY | END 2025-05-14 23:59 | disposition home or self-care (01) | LOC: CR 10:00 | PROVIDERS: PCP Nurse Practitioner Family; Visit Provider Internal Medicine Cardiovascular Disease | DX: I21.4 Non-ST elevation (NSTEMI) myocardial infarction (principal); I50.20 Unspecified systolic (congestive) heart failure; Z51.89 Encounter for other specified aftercare | CPT/HCPCS: S9472 ==

== ENCOUNTER 2025-06-10 14:00 | Outpatient (RCR) | payer BC, SELFPAY ==
[2025-06-03 15:11] VITALS: BP 124/64; PULSE 66
[2025-06-05 14:58] VITALS: BP 114/64; PULSE 71; O2SAT 96
[2025-06-10 15:53] VITALS: BP 112/64; PULSE 68
== END 2025-06-14 23:59 | disposition home or self-care (01) ==
LOC: CR 14:00
PROVIDERS: PCP Nurse Practitioner Family; Visit Provider Internal Medicine Cardiovascular Disease
DX: I21.4 Non-ST elevation (NSTEMI) myocardial infarction (principal); Z95.5 Presence of coronary angioplasty implant and graft; Z51.89 Encounter for other specified aftercare
CPT/HCPCS: S9472

== ENCOUNTER 2025-06-19 21:53 | Outpatient (REF) | payer BC, SELFPAY ==
[2025-06-19 22:13] LABS: ALT 36 U/L (16-63); AST 17 U/L (15-37); Albumin 4.1 g/dL (3.4-5.0); Alkaline Phosphatase 155 U/L (46-116); Anion Gap 9.6 mmol/L (3-11); BUN 24 mg/dL (7-18); Bilirubin, Total 0.7 mg/dL (0.2-1.0); CO2 25.4 mmol/L (21.0-32.0); Calcium 9.3 mg/dL (8.5-10.1); Calculated LDL 48 mg/dL (<100); Chloride 103 mmol/L (98-107); Cholesterol 134 mg/dL (<200); Estimated GFR 75.90 (mL/min/1.73m2); Glucose 285 mg/dL (74-106); HDL Cholesterol 66 mg/dL (>or=40); Potassium 4.5 mmol/L (3.5-5.1); Sodium 138 mmol/L (136-145); Total Protein 6.8 g/dL (6.4-8.2); Triglyceride 100 mg/dL (<150)
[2025-06-22 09:50] LABS: PSA, Screening 0.4 ng/mL (<=4.5)
== END 2025-06-19 21:54 | disposition home or self-care (01) ==
LOC: LBN 21:53
PROVIDERS: PCP Nurse Practitioner Family; Visit Provider Nurse Practitioner Family
DX: I10 Essential (primary) hypertension (principal); Z13.220 Encounter for screening for lipoid disorders; Z12.5 Encounter for screening for malignant neoplasm of prostate
CPT/HCPCS: 80053; 80061; 84153

== ENCOUNTER 2025-07-08 15:00 | Outpatient (RCR) | payer SELFPAY ==
[2025-06-17 16:03] VITALS: BP 110/60; PULSE 72
[2025-06-19 15:15] VITALS: BP 103/59; PULSE 70; O2SAT 95
[2025-06-24 15:22] VITALS: BP 108/62; PULSE 72
[2025-06-26 15:00] VITALS: BP 121/66; PULSE 68; O2SAT 96
[2025-07-01 15:02] VITALS: BP 122/63; PULSE 69
[2025-07-03 15:25] VITALS: BP 118/66; PULSE 66; O2SAT 96
[2025-07-08 15:16] VITALS: BP 107/61; PULSE 71
== END 2025-07-14 23:59 | disposition home or self-care (01) ==
LOC: CR 15:00
PROVIDERS: PCP Nurse Practitioner Family; Visit Provider Internal Medicine Cardiovascular Disease
DX: R69 Illness, unspecified (principal)

== ENCOUNTER 2025-08-14 15:00 | Outpatient (RCR) | payer SELFPAY ==
[2025-07-15 15:06] VITALS: BP 128/67; PULSE 68
[2025-07-15 15:07] VITALS: BP 128/67; PULSE 68
[2025-07-17 15:40] VITALS: BP 110/61; PULSE 65
[2025-07-22 15:22] VITALS: BP 117/60; PULSE 81
[2025-07-24 15:00] VITALS: BP 123/65; PULSE 65; O2SAT 97
[2025-07-29 15:39] VITALS: BP 122/62; PULSE 77
[2025-07-31 15:00] VITALS: BP 112/62; PULSE 77
[2025-08-05 14:54] VITALS: BP 126/70; PULSE 65
[2025-08-14 15:05] VITALS: BP 134/75; PULSE 62; O2SAT 98
== END 2025-08-14 23:59 | disposition home or self-care (01) ==
LOC: CR 15:00
PROVIDERS: PCP Nurse Practitioner Family; Visit Provider Internal Medicine Cardiovascular Disease
DX: R69 Illness, unspecified (principal)

== ENCOUNTER 2025-09-09 15:00 | Outpatient (RCR) | payer SELFPAY ==
[2025-08-19 15:12] VITALS: BP 132/64; PULSE 67
[2025-08-21 15:04] VITALS: BP 123/61; PULSE 73; O2SAT 98
[2025-08-26 15:15] VITALS: BP 113/63; PULSE 70
[2025-08-28 15:33] VITALS: BP 113/65; PULSE 67
[2025-09-02 15:00] VITALS: BP 119/64; PULSE 70; O2SAT 96
[2025-09-04 15:03] VITALS: BP 111/65; PULSE 72; O2SAT 97
[2025-09-09 15:22] VITALS: BP 124/64; PULSE 72
== END 2025-09-13 23:59 | disposition home or self-care (01) ==
LOC: CR 15:00
PROVIDERS: PCP Nurse Practitioner Family; Visit Provider Internal Medicine Cardiovascular Disease
DX: R69 Illness, unspecified (principal)

== ENCOUNTER 2025-10-01 04:26 | Observation (INO) | payer BC, SELFPAY ==
[2025-10-01] VITALS (73 sets, daily range): BP systolic 99–128; BP diastolic 42–72; PULSE 0–106; RESP 14–27; TEMP 36.4–37.5; O2SAT 95–100
--- NOTE | 2025-10-01 | DI.RAD_ITS ---
Exam(s) XR CHEST 1V IN DI DEPT EXAM: XR CHEST 1V IN DI DEPT CLINICAL HISTORY: SYNCOPE,CHEST PAIN,S/P FALL,HEAD TRAUMA TECHNIQUE: 2D digital imaging was performed of the chest. One image was obtained. An AP view was obtained. COMPARISON: CR XR PORTABLE CHEST AP from 12/15/2024 FINDINGS: MEDIASTINUM: Normal. HEART: Normal. PULMONARY VASCULATURE: Normal. LUNGS: Clear. PLEURAL SPACE: No pleural effusion or pneumothorax. BONE:Within normal limits for the patient's age. OTHER FINDINGS:Normal. IMPRESSION: 1. No acute pulmonary findings. 2. The preliminary [facility] report was reviewed. DATA REPOSITORY: RADIATION DOSE DELIVERED:
--- NOTE | 2025-10-01 | DI.CT_ITS ---
Exam(s) CT HEAD CERVICAL SPINE WO EXAM: CT HEAD CERVICAL SPINE WO CLINICAL HISTORY: SYNCOPE,S/P FALL,HEAD TRAUMA. TECHNIQUE: Imaging Protocol: Axial computed tomography images with coronal and sagittal reformatted images were created and reviewed COMPARISON: No exams were available for comparison FINDINGS: Head CT Ventricles and Extra axial spaces: Normal in size and morphology for the patient's age. Hemorrhage: None. Cerebral parenchyma: No evidence of mass or acute infarct. Midline shift: None. Brainstem/Cerebellum: Normal. Calvarium: Normal. Visualized Paranasal sinuses/Mastoids: Clear. Soft tissues: Unremarkable. Cervical Spine CT BONES: Vertebral body heights are maintained. Alignment is normal. There is no evidence of acute fracture. Degenerative disc changes and facet degenerative changes are seen causing bilateral neural foraminal narrowing at multiple levels.. SOFT TISSUES: No paraspinal hematoma. The airway appears intact. No pneumothorax is seen at the lung apices. IMPRESSION: Head CT: No acute abnormality. C-spine CT: Degenerative changes, no acute abnormality. The preliminary [facility] report was reviewed. RADIATION DOSE DELIVERED: Total DLP DATA REPOSITORY: All CT scans at this facility are submitted to the National Radiology Data Registry (NRDR) Dose Index Registry (DIR) with the [employer] ([employer]). RADIATION OPTIMIZATION: All CT scans at this facility use at least one of these dose optimization techniques: automated exposure control; mA and/or kV adjustment per patient size (includes targeted exams where dose is matched to clinical indication); or iterative reconstruction.
--- NOTE | 2025-10-01 04:45 | RT.EKG_ITS ---
APPROVED REPORT Exam: Resting ECG Reason for Exam: Vomiting Patient Location: E HR:92 bpm ECG Measurements Heart Rate 92 AXIS WI 120 P 51 QRSd 93 QRS 98 QT 353 T 83 QTc 438 Conclusion Gender not entered, assumed to be male for purpose of ECG interpretation Sinus rhythm...normal P axis, V-rate 60- 99 Ventricular bigeminy...bigeminy string>4 w/ V complexes Probable anterior infarct, old...Q >40mS, V2-V5 Physician: No STEMI
--- NOTE | 2025-10-01 05:30 | RT.EKG_ITS ---
APPROVED REPORT Exam: Resting ECG Reason for Exam: Vomiting Patient Location: E HR:99 bpm ECG Measurements Heart Rate 99 AXIS WV 123 P 54 QRSd 96 QRS 100 QT 358 T 82 QTc 459 Conclusion Gender not entered, assumed to be male for purpose of ECG interpretation Sinus rhythm...normal P axis, V-rate 60- 99 Ventricular bigeminy...bigeminy string>4 w/ V complexes Anterior infarct, old...Q >40mS, abnormal ST-T, V2-V5 PHysician: No STEMI
--- NOTE | 2025-10-01 08:21 | W.EDPROG ---
Date of service: 10/01/25 Time of Service: 08:22 Medical Decision Making I received signout on this 65-year-old type I diabetic in the emergency department with chest pain & syncope. Prior STEMI December 2024. ?In February received 2 more stents. 4 stents in total. Vomited at home. Superficial facial laceration. Initial troponin reassuring. No dynamic ECG changes. Negative CT scan head. CXR & lytes reassuring. He is pending 2 additional troponins. 11:26 AM Patient had a normal reassuring troponin result at 15 ng/L. 15 ng/L --> 15 ng/L --> 9 ng/L 12:08 PM Patient still nauseous. Will treat with metoclopramide. He does not feel safe going home as he has fallen. Given the he is blind and that his prior OK presents with only with nausea I do not think it is unreasonable to observe him overnight in the hospital. Will order an additional ECG now reach out to the hospitalist with request for hospitalization. 4:40 PM Late charting due to patient care. Repeat ECG showing no concerning changes. I was in touch with Dr. Pan who graciously agreed to accept the patient for hospitalization. Discharge Plan Disposition Patient Disposition: Admit to [facility] Discharge Details Clinical Impression: Syncope and collapse, Nausea & vomiting Admit Date/Time: 10/01/25 15:04 Admit Provider: Ton Pan Attending Provider: Ton Pan Primary Care Provider: Freddy Gómez ED Provider: Latrell Tsai
[2025-10-01] MEDS: Insulin Aspart 100 UNITS/ML UNIT 18 UNITS SC (10:03)
--- NOTE | 2025-10-01 10:23 | DI.[facility]_ITS ---
PROCEDURE INFORMATION: Exam: CT Head Without Contrast Exam date and time: 10/01/2025 5:50 AM Age: 64 years old Clinical indication: Injury or trauma; Blunt trauma (contusions or hematomas); Loss of consciousness unknown; Injury date: 10/01/25; Syncope, head trauma, fall TECHNIQUE: Imaging protocol: Computed tomography of the head without contrast. Radiation optimization: All CT scans at this facility use at least one of these dose optimization techniques: automated exposure control; mA and/or kV adjustment per patient size (includes targeted exams where dose is matched to clinical indication); or iterative reconstruction. COMPARISON: CT HEAD FACE [facility](Adult) 10/01/2025 5:50 AM FINDINGS: Brain: Normal. No hemorrhage. Unremarkable white matter. No mass effect. Cerebral ventricles: No ventriculomegaly. Paranasal sinuses: Visualized sinuses are unremarkable. No fluid levels. Mastoid air cells: Visualized mastoid air cells are well aerated. Bones: Unremarkable. No acute fracture. Soft tissues: Unremarkable. Vasculature: Calcified atherosclerosis of the intracranial ICAs. IMPRESSION: No acute intracranial abnormality. PROCEDURE INFORMATION: Exam: CT Cervical Spine Without Contrast Exam date and time: 10/01/2025 5:50 AM Age: 64 years old Clinical indication: Injury or trauma; Blunt trauma (contusions or hematomas); Loss of consciousness unknown; Injury date: 10/01/25; Syncope, head trauma, fall TECHNIQUE: Imaging protocol: Computed tomography of the cervical spine without contrast. Radiation optimization: All CT scans at this facility use at least one of these dose optimization techniques: automated exposure control; mA and/or kV adjustment per patient size (includes targeted exams where dose is matched to clinical indication); or iterative reconstruction. COMPARISON: CT HEAD FACE [facility](Adult) 10/01/2025 5:50 AM FINDINGS: Bones: No acute fracture. Normal alignment. Multilevel cervical degenerative disc disease and facet degeneration. There are multilevel small posterior disc bulges causing mild spinal canal stenosis at C4-C5 and borderline mild spinal canal stenosis at C3-C4 and C5-C6. Multilevel bilateral neural foraminal narrowing. Lungs: Lung apices are normal. Soft tissues: Unremarkable. IMPRESSION: 1. No acute cervical spine fracture. 2. Non-acute findings are described above. Dictated and Authenticated by: Davi Ashton MD. Ordering: Accession#=
--- NOTE | 2025-10-01 10:29 | DI.[facility]_ITS ---
PROCEDURE INFORMATION: Exam: XR Chest Exam date and time: 10/01/2025 6:00 AM Age: 64 years old Clinical indication: Pain and injury or trauma; Blunt trauma (contusions or hematomas); Chest pressure; Injury date: 10/01/25; Chest pain, syncope, fall TECHNIQUE: Imaging protocol: Radiologic exam of the chest. Views: 1 view. COMPARISON: CR XR PORTABLE CHEST AP 12/15/2024 5:21 PM FINDINGS: Lungs: Unremarkable. No consolidation. Pleural spaces: Unremarkable. No pleural effusion. No pneumothorax. Heart/Mediastinum: Unremarkable. No cardiomegaly. Bones/joints: Unremarkable. IMPRESSION: No acute findings. Dictated and Authenticated by: Cesia Guy MD. Ordering: Accession#=
[2025-10-01] MEDS: Insulin Glargine 300 UNITS/3 ML PEN 23 UNITS SC (10:50)
[2025-10-01] MEDS: Ondansetron O.D.T. 4 MG TABEF, 3 TABS/BTL PO (11:44)
--- NOTE | 2025-10-01 12:00 | RT.EKG_ITS ---
APPROVED REPORT Exam: Resting ECG Reason for Exam: Nausea Patient Location: E HR:85 bpm ECG Measurements Heart Rate 85 AXIS NV 114 P 62 QRSd 87 QRS 93 QT 351 T 95 QTc 418 Conclusion Sinus rhythm...normal P axis, V-rate 60- 99 Right axis deviation...QRS axis ( 91,269) Low voltage, precordial leads...precordial leads <1.0mV Abnrm R prog, consider ASMI or lead placement...Q >30mS, diminished R, V1-V2 Nonspecific T abnormalities, lateral leads...T <-0.10mV, I aVL V5 V6 No Occlusion NC
[2025-10-01 12:47] LABS: INR 1.0 (0.9-1.1); PTT Activated 19.5 sec (20.6-30.2); Prothrombin Time 9.8 sec (9.1-11.1)
[2025-10-01 12:51] LABS: BUN 21 mg/dL (9-23); Calcium 9.3 mg/dL (8.3-10.6); Glucose 257 mg/dL (74-106)
[2025-10-01 12:52] LABS: CO2 24.0 mmol/L (20.0-31.0); Chloride 102 mmol/L (98-107); Potassium 4.2 mmol/L (3.5-5.1); Sodium 139 mmol/L (136-145)
[2025-10-01 12:53] LABS: Anion Gap 13 mmol/L (3-11); Lipase 61 U/L (<53); Magnesium 1.7 mg/dL (1.6-2.6); Troponin I 15 ng/L (<54)
[2025-10-01 12:56] LABS: Troponin I 15 ng/L (<54)
[2025-10-01 12:58] LABS: Troponin I 9 ng/L (<54)
[2025-10-01] MEDS: METOCLOPRAMIDE 10 MG in Normal Saline 50 ML 200 MG IVPB (13:05)
[2025-10-01] MEDS: Normal Saline 500 ML IV (13:06)
[2025-10-01 13:18] LABS: HCT 46.3 % (40.0-50.0); HGB 15.3 g/dL (13.5-17.5); MCH 28.8 pg (27.0-33.0); MCHC 33.0 % (32.0-36.0); MCV 87 fL (80-95); MPV 10.3 fL (8.0-11.0); Platelet Count 221 10^3/uL (130-400); RBC 5.31 10^6/uL (4.36-5.78); RDW 13.2 % (11.8-14.1); RDW-SD 42.5 fL; WBC 11.16 10^3/uL (4.4-10.8)
[2025-10-01 13:19] LABS: Abs Immature Grans 0.04 10^3/uL (0.0-0.06); Immature Grans % 0.4 %
--- NOTE | 2025-10-01 15:17 | W.PM.HP.N ---
Date of service: 10/01/25 Time of Service: 15:00 Assessment and Plan Assessment and plan (1) Syncope and collapse: Status: Acute Assessment and plan: Single episode preceded by vomiting No other family members are ill CXR unremarkable CT head/cspine unremarkable EKG without acute findings Fluid bolus 500ml [facility] Physical therapy Will defer echocardiogram (2) Nausea & vomiting: Status: Acute Assessment and plan: Abrupt vomiting episode with persistent nausea Continue PRN antiemesis If vomiting persist work up GI (3) Diabetes type I: Status: Acute Assessment and plan: Continue home regimen (4) CAD (coronary artery disease): Status: Chronic Assessment and plan: Continue home regimen History of Present Illness History of Present Illness Chief Complaint: lightheadedness Narrative: Chris Kemp is a 64 year old man presenting October 01 after falling at home. His fiance is at bedside; they relate an episode of vomiting three times followed by slumping over with his face against the mirror. After fluid resuscitation and clearance for injuries in the ED, he continued to be dizzy upon standing, with intermittent nausea. He has significant cardiac history including an OK in December 2024 which required CPR, during which he had anoxia resulting in blindness. Patient is very concerned about a heart attack as his symptoms are identical to his OK. He is very fit. In the ED, EKG was not concerning for occlusion, and troponins were negative. As his symptoms persisted, he was admitted to medicine. PMH: type 1 diabetes on insulin, CAD s/p stenting x3 s/p OK, GERD PFSH All Active Problems (Updated 10/01/25 @ 19:51 by Ton Pan MD) CAD (coronary artery disease) (Chronic) Nausea & vomiting (Acute) Syncope and collapse (Acute) Total blindness (Acute) Acute HFrEF (heart failure with reduced ejection fraction) (Acute) NSTEMI (non-ST elevated myocardial infarction) (Acute) Bilateral optic neuropathy (Acute) Hypertension (Chronic) Hyperlipidemia (Acute) Normal colonoscopy (Acute) Diabetes type I (Acute) Medical History Uses self-applied continuous glucose monitoring device (L) Upper Posterior arm Adhesive capsulitis of both shoulders Rotator cuff tear, right Surgical History History of colonoscopy (~11/18/21) History of release of tendon Left wrist Family History Mother , 87 Heart disease Father , 76 Diabetes Heart disease Hyperlipidemia Hypertension Sister No problems noted. Daughter No problems noted. Maternal Grandfather , 75 Stomach cancer Paternal Grandfather , 50 Diabetes Maternal Grandmother , 65 Breast cancer Paternal Grandmother , 93 Heart disease Social History (Updated 06/19/25 @ 14:39 by Enedina No) Smoking/Tobacco Use Status: Never Second Hand Exposure: No Smoking risk assessment performed?: Yes Alcohol Intake: current Alcohol Intake frequency: a few times a week Alcohol type: beer and hard liquor Drug use: Never Substance use type: does not use and other Adopted: No Caregiver/Support person: No Household members: significant other Housing: house Communication Needs: None Do you need help understanding health information?: Never Pets and animals: Yes Pets and animals: cat(s), dog(s) and horse(s) Sexually active: Yes Do you think of yourself as: straight/heterosexual Current gender identity: male What is your relationship status?: living with partner How often do you talk on the phone with friends or family?: three or more times per week How often do you get together with friends or relatives?: twice per week How often do you attend buddhist or restoration services?: 1-3 times per year Do you belong to any clubs or organized social groups?: no Panel score (0-1 are the most socially isolated patients): 2 What type of physical activity do you participate in: walking and weight lifting Duration: 60-90 minutes/day Frequency: daily Lenore/Jew: [employer]aritan Special lenore needs: No Agree to transfusion: No Seatbelt use: always Helmet use: Yes Helmet use: always Drive intox or ride w/intox transit bus driver: No Do you feel safe at home: Yes Do you feel safe in your relationship?: Yes Meds Allergies and Home Medications Allergies Allergy/AdvReac Type Severity Reaction Status Date / Time Penicillins AdvReac Intermediate as a Kid Verified 06/19/25 13:07 no idea what reaction is. Home Medications ?Medication ?Instructions ?Recorded ?Confirmed ?Type aspirin 81 mg tablet,delayed 81 mg PO DAILY 09/06/21 10/01/25 History release multivitamin (Multiple Vitamins 1 tab PO DAILY 11/03/21 10/01/25 History tablet) pen needle, diabetic 31 gauge x #100 ea 05/31/22 10/01/25 Rx 1/4 (Comfort EZ Pen [place]) blood-glucose sensor (Dexcom G7 #1 ea 05/16/23 10/01/25 Rx Sensor device) pen needle, diabetic 31 gauge x #100 ea 05/16/23 10/01/25 Rx 1/4 (Comfort EZ Pen [place]) blood-glucose sensor (Dexcom G7 #3 ea 09/12/24 10/01/25 Rx Sensor device) blood-glucose sensor (Dexcom G7 #3 ea 09/12/24 10/01/25 Rx Sensor device) blood-glucose,dusting and brushing machine operator,cont #1 ea 01/01/25 10/01/25 Rx (Dexcom G7 Senior [employer] Agent) acetone (urine) test (Ketone Urine 01/02/25 10/01/25 History Test strips) atorvastatin 40 mg tablet (Lipitor) 40 mg PO DAILY 01/02/25 10/01/25 History blood sugar diagnostic (Blood 01/02/25 10/01/25 History Glucose Test strips) glucagon 1 mg/0.2 mL subcutaneous 1 mg subcut ONCE 01/02/25 10/01/25 History auto-injector glucagon 3 mg/actuation nasal spray 3 mg intranasal ONCE 01/02/25 10/01/25 History lancets 01/02/25 10/01/25 History losartan 25 mg tablet 25 mg PO DAILY 01/02/25 10/01/25 History metoprolol succinate 25 mg 25 mg PO DAILY 01/02/25 10/01/25 History tablet,extended release 24 hr nitroglycerin 0.4 mg sublingual 0.4 mg sublingual Q5M PRN 01/02/25 10/01/25 History tablet ticagrelor 90 mg tablet (Brilinta) 90 mg PO BID 01/02/25 10/01/25 History insulin lispro 100 unit/mL 1 sliding scale dose subcut 01/05/25 10/01/25 History subcutaneous pen TIDWMEAL polyethylene glycol 3350(bulk) 1 grnl miscellaneous DAILY 01/05/25 10/01/25 History (Base B, Polyethylene Glycol 3350 granules) hydrochlorothiazide 25 mg tablet 25 mg PO DAILY 06/19/25 10/01/25 History eplerenone 25 mg tablet 25 mg PO ONCE 10/01/25 10/01/25 History esomeprazole magnesium 20 mg 20 mg PO DAILY 10/01/25 10/01/25 History capsule,delayed release furosemide 20 mg tablet 20 mg PO DAILY 10/01/25 10/01/25 History insulin glargine 100 unit/mL (3 23 unit subcut QAM 10/01/25 10/01/25 History mL) subcutaneous pen (Lantus Solostar U-100 Insulin) Exam Narrative Exam Narrative: General: This is a pleasant man in no distress HEENT: Normocephalic, atraumatic. Blind with corrective sunglasses. CV: RRR, no edema Resp: CTAB Abd: soft, NTND MSK: voluntary motion x4 Neuro: awake, alert, no focal deficits Results Labs 10/01/25 04:41 10/01/25 04:41 Labs: Laboratory Results - last 24 hr 10/01/25 10/01/25 10/01/25 04:41 06:32 08:50 WBC 11.16 H RBC 5.31 Hgb 15.3 Hct 46.3 MCV 87 MCH 28.8 MCHC 33.0 RDW 13.2 Plt Count 221 MPV 10.3 Immature Gran % 0.4 Neutrophils % 91.7 Lymphocytes % 3.4 Monocytes % 3.0 Eosinophils % 1.3 Basophils % 0.2 Absolute Neutrophils 10.24 H Absolute Lymphocytes 0.38 L Absolute Monocytes 0.33 Absolute Eosinophils 0.15 Absolute Basophils 0.02 PT 9.8 INR 1.0 APTT 19.5 L Sodium 139 Potassium 4.2 Chloride 102 Carbon Dioxide 24.0 Anion Gap 13 H BUN 21 Creatinine 1.03 Est GFR (CKD-EPI 2020) 82.13 Glucose 257 H Calcium 9.3 Magnesium 1.7 Troponin I 15 15 9 Lipase 61 H Last Vital Signs Temp 36.4 C L 10/01/25 11:45 Pulse 86 10/01/25 12:31 Resp 18 10/01/25 12:31 BP 116/65 10/01/25 12:30 Pulse Ox 96 10/01/25 12:31 VTE Prohylaxis Risk Level: Low Risk Contraindications: None Prophylaxis: Patient ambulatory Time Spent Time spent with Patient: 40-54 minutes Time was spent: preparing to see the patient(eg.review tests), obtaining and/or reviewing separately otained hiistory, ordering medications,tests, procedures, referring, communicating with other health animal care giver, indepentently interpreting results, counseling the patient and care coordination
[2025-10-01 16:07] LABS: COVID-19 PCR Negative (Negative); RSV PCR Negative (Negative)
[2025-10-01] MEDS: Ondansetron 4 MG/2 ML VIAL IVP (17:45)
--- NOTE | 2025-10-01 17:52 | W.PC.ACHO ---
Registration Status: ADM LESLIE Primary Language: Preferred Language: ED Information & Data Chief Complaint [id number] 10/01/25 08:39 Chief Complaint [id number] 10/01/25 08:39 Triage Note See paper chart. BOOGIE, 10/01/25 08:39 syncope with hx of cardiac arrest. Medical / Surgical History (Last Reviewed 12/15/24 @ 19:16 by Iván Toure MD) Uses self-applied continuous glucose monitoring device Adhesive capsulitis of both shoulders Rotator cuff tear, right (Last Reviewed 12/15/24 @ 19:16 by Iván Toure MD) History of colonoscopy (~11/18/21) History of release of tendon Most Recent Vital Signs Temperature 37.5 C 10/01/25 16:10 Temperature Source Tympanic 10/01/25 16:08 Pulse 85 10/01/25 16:10 Pulse 86 10/01/25 15:20 Respiratory Rate 16 10/01/25 16:10 Respiratory Effort Normal 10/01/25 16:10 Respiratory Depth Normal 10/01/25 16:10 Respiratory Pattern Normal 10/01/25 16:10 Blood Pressure 116/63 10/01/25 16:10 Blood Pressure Mean 80 10/01/25 16:08 Pulse Oximetry 98 10/01/25 16:10 Oxygen Delivery Method Room Air 10/01/25 16:10 Oxygen Flow Rate 0 10/01/25 16:10 Pain Level 0 10/01/25 16:41 Allergies Penicillins Adverse Reaction (Intermediate, Verified 06/19/25 13:07) as a Kid no idea what reaction is. Active Medications Generic Name Dose Route Start Last Admin Trade Name Freq PRN Reason Stop Dose Admin Ondansetron HCl 4 mg 10/01/25 12:00 10/01/25 11:44 Ondansetron O.D.T. 4 Mg Tabef, 3 Tabs/Btl PO 3 tab DISPENSE CONSTANTINE Administration Ondansetron HCl 4 mg 10/01/25 16:59 10/01/25 17:45 Ondansetron 4 Mg/2 Ml Vial IVP 4 mg Q8H PRN PRN Administration IV IV Catheter Type [Right Peripheral IV Forearm] IV Catheter Type [Left Saline Lock Antecubital] IV Catheter Gauge [Right 20 Forearm] IV Catheter Gauge [Left 18 Antecubital] Diet Orders Category Date Time Status Diabetes Consistent CHO [DIET] Nutrition 10/01/25 Dinner Active Diagnostics 10/01/25 10/01/25 10/01/25 Range/Units 15:21 08:50 06:32 WBC (4.4-10.8) 10^3/uL RBC (4.36-5.78) 10^6/uL Hgb (13.5-17.5) g/dL Hct (40.0-50.0) % MCV (80-95) fL MCH (27.0-33.0) pg MCHC (32.0-36.0) % RDW (11.8-14.1) % Plt Count (130-400) 10^3/uL MPV (8.0-11.0) fL Immature Gran % % Neutrophils % % Lymphocytes % % Monocytes % % Eosinophils % % Basophils % % Absolute Neutrophils (1.2-6.7) 10^3/uL Absolute Lymphocytes (1.2-3.4) 10^3/uL Absolute Monocytes (0.1-0.8) 10^3/uL Absolute Eosinophils (0.0-0.7) 10^3/uL Absolute Basophils (0.0-0.2) 10^3/uL PT (9.1-11.1) sec INR (0.9-1.1) APTT (20.6-30.2) sec Sodium (136-145) mmol/L Potassium (3.5-5.1) mmol/L Chloride (98-107) mmol/L Carbon Dioxide (20.0-31.0) mmol/L Anion Gap (3-11) mmol/L BUN (9-23) mg/dL Creatinine (0.73-1.18) mg/dL Est GFR (CKD-EPI 2020) (mL/min/1.73m2) Glucose (74-106) mg/dL Calcium (8.3-10.6) mg/dL Magnesium (1.6-2.6) mg/dL Troponin I 9 15 (<54) ng/L Lipase (<53) U/L COVID-19 Source Nasopharynx SARS-CoV-2 (PCR) Negative (Negative) Influenza Type A (PCR) Negative (Negative) Influenza Type B (PCR) Negative (Negative) RSV (PCR) Negative (Negative) 12/18/25 Range/Units 04:41 WBC 11.16 H (4.4-10.8) 10^3/uL RBC 5.31 (4.36-5.78) 10^6/uL Hgb 15.3 (13.5-17.5) g/dL Hct 46.3 (40.0-50.0) % MCV 87 (80-95) fL MCH 28.8 (27.0-33.0) pg MCHC 33.0 (32.0-36.0) % RDW 13.2 (11.8-14.1) % Plt Count 221 (130-400) 10^3/uL MPV 10.3 (8.0-11.0) fL Immature Gran % 0.4 % Neutrophils % 91.7 % Lymphocytes % 3.4 % Monocytes % 3.0 % Eosinophils % 1.3 % Basophils % 0.2 % Absolute Neutrophils 10.24 H (1.2-6.7) 10^3/uL Absolute Lymphocytes 0.38 L (1.2-3.4) 10^3/uL Absolute Monocytes 0.33 (0.1-0.8) 10^3/uL Absolute Eosinophils 0.15 (0.0-0.7) 10^3/uL Absolute Basophils 0.02 (0.0-0.2) 10^3/uL PT 9.8 (9.1-11.1) sec INR 1.0 (0.9-1.1) APTT 19.5 L (20.6-30.2) sec Sodium 139 (136-145) mmol/L Potassium 4.2 (3.5-5.1) mmol/L Chloride 102 (98-107) mmol/L Carbon Dioxide 24.0 (20.0-31.0) mmol/L Anion Gap 13 H (3-11) mmol/L BUN 21 (9-23) mg/dL Creatinine 1.03 (0.73-1.18) mg/dL Est GFR (CKD-EPI 2020) 82.13 (mL/min/1.73m2) Glucose 257 H (74-106) mg/dL Calcium 9.3 (8.3-10.6) mg/dL Magnesium 1.7 (1.6-2.6) mg/dL Troponin I 15 (<54) ng/L Lipase 61 H (<53) U/L COVID-19 Source SARS-CoV-2 (PCR) (Negative) Influenza Type A (PCR) (Negative) Influenza Type B (PCR) (Negative) RSV (PCR) (Negative) [id number] Documentation Fingerstick Glucose Start: 10/01/25 09:10 Freq: Status: Complete Protocol: Activity Type Activity Date Activity User E-sign Co-sign Detail Recorded Client Recorded Date Recorded By Document 10/01/25 09:09 BKG DAEMON(3) [id number] 10/01/25 09:10 BKG DAEMON(4) Intake and Output - 24 Hour Total 10/01/25 04:26 thru 10/01/25 16:10 Intake Total 552 Balance 552 Weight 81.6 kg Intake: IV 552 Falls Risk Assessment History of Falls Admit Due to Fall 10/01/25 16:10 Contributing Factors Unstable 10/01/25 16:10 Ambulatory Aids Independent 10/01/25 16:10 Tubes/Lines None 10/01/25 16:10 Gait Evaluation No gait disturbance 10/01/25 16:10 Cognition No cognitive impairment 10/01/25 08:42 Fall Total Score 28 10/01/25 16:10 Level of Risk Moderate Risk 10/01/25 16:10 Attestation Statement: By documenting the first initial, last name, and credentials of the reporting nurse below, both parties acknowledge that all relevant information regarding the patient handoff has been communicated, and that all questions have been addressed to ensure continuity and safety of care. Additional Patient Information/Comments: pt alert and oriented x 4 no complaints of dizziness or CP Report Received From: [facility]
--- NOTE | 2025-10-01 17:59 | NUR.NOTE ---
Nursing Note: After 3:30pm pt transfered from ER via stretcher pt alertand oriented x 4 pt denies pain or CP denies dizziness when standing pt is blind in both eyes pts at bedside full admission done skin check done skin intact pt placed on telemetry NSR VSS pt did complain of slight nausea given zofran with good effect pts BS at 6pm 229 coverage given will continue to monitor
[2025-10-01] MEDS: Insulin Aspart 300 UNITS/3 ML PEN SC (18:12)
[2025-10-01] MEDS: Insulin Aspart 300 UNITS/3 ML PEN 6 UNITS SC (21:10)
--- NOTE | 2025-10-02 | DI.US_ITS ---
APPROVED REPORT EXAM: Comprehensive 2D, Doppler, and color-flow Echocardiogram Patient Location: In-Patient Room/Bed: 212 Marketing Project Specialist: Salud Epstein RDCS (AE) Indications: syncope, h/o HFrEF, NSTEMI Other Information Study Quality: Adequate Conclusion Normal left ventricular wall thickness and chamber size. Ejection fraction is 55%. No segmental wall motion abnormalities are appreciated Normal right ventricular size and function Both atria are normal in size There is no structural or hemodynamically significant valvular disease Wall motion Left Ventricle The left ventricle is normal size. The left ventricular systolic function is normal. The left ventricular ejection fraction is within the normal range. There is normal left ventricular wall thickness. There is normal LV segmental wall motion. There is no ventricular septal defect visualized. LVEF is 55%. Right Ventricle The right ventricle is normal size. The right ventricular systolic function is normal. Atria The left atrium size is normal. The right atrium size is normal. The interatrial septum is intact with no evidence for an atrial septal defect. Aortic Valve The aortic valve is normal in structure. Aortic valve is trileaflet. There is no aortic valvular stenosis. No aortic regurgitation is present. Mitral Valve The mitral valve is normal in structure. No evidence of mitral valve stenosis. Trace mitral regurgitation. Tricuspid Valve The tricuspid valve is normal in structure. There is no tricuspid valve stenosis. Trace tricuspid regurgitation. Unable to assess PA pressure. Pulmonic Valve The pulmonary valve is normal in structure. There is no pulmonic valvular stenosis. Trace pulmonic regurgitation. Great Vessels The aortic root is normal in size. The ascending aorta is normal in size. Aortic arch is not well visualized. IVC is normal in size and collapses >50% with inspiration. Pericardium There is no pericardial effusion. 2D Dimensions IVSD d PLAX 0.81 cm M: 0.6-1.2 Ao Root d 2.90 cm M: 3.1 - 3.7 LVPW d PLAX 0.80 cm M: 0.6 - 1.2 Ao Asc Diam d 3.15 cm M: 2.6 - 3.4 LVID d PLAX 5.41 cm M: 4.2 - 5.8 LVDs 3.83 cm M: 2.5 - 4.0 LV EF Teichholz 55.6 % FS 29.23 % LV EDV (Teich) 141.7 mL LV ESV (Teich) 63.0 mL M-Mode TAPSE 2.94 cm (M/F) >1.7 Auto EF LV EDV A4C 149.9 mL LV EDV A2C 129.9 mL LV EDV BP 139.1 mL LV ESV A4C 70.5 mL LV ESV A2C 58.5 mL LV ESV BP 64.2 mL LVEF(%) A4C 53.0 % LVEF(%) A2C 54.9 % LVEF(%) BP 53.8 % LV SV A4C 79.4 ml LV SV A2C 71.4 ml LV SV BP 74.9 ml LV CO A4C 6.0 L/min LV CO A2C 5.5 L/min LV CO BP 5.7 L/min HR A4C 75.00 BPM HR A2C 77.59 BPM LV EDV Index (BP) LA Volume LA Length A4C 4.7 cm LA Length A2C 4.3 cm LA Area A4C s 14.84 cm2 LA Area A2C s 15.61 cm2 LA Vol A4C A-L 39.51 mL LA Vol A2C A-L 48.36 mL LA Vol Biplane A-L 46.0 mL LA Vol/BSA A4C A-L LA Vol/BSA A2C A-L LA Vol/BSA BP A-L 22.2 mL/m2 LA Vol A4C MOD 35.3 mL LA Vol A2C MOD 44.6 mL LA Vol BP MOD 41.2 mL RA Volume RA Area A4C 12.6 cm2 RA ESV A4C (A-L) 33.8mL RA Vol/BSA A4C A-L RA Length A4C 4.0 cm RA ESV A4C (MOD) 32.7mL LV Diastology MV E' medial 0.071 (>0.07 m/s) MV E Vmax 0.53 (0.4-1.3 m/s) MV E/E' MED 7.48 (<14) MV A Vmax 0.70 (0.4-1.3 m/s) MV E' lateral 0.108 (>0.1 m/s) E/A Ratio 0.8 MV E/E' LAT 4.95 (<14) MV E' Average 0.090 m/s MV E/E'(average) 5.96 Aortic Valve AoV Vmax 1.24 m/s LVOT Vmax 0.91 m/s AoV Peak Grad 6.1 mmHg LVOT Peak Grad 3.3 mmHg AoV Area (Vmax) 2.27 cm2 LVOT VTI 0.190 m AoV VTI 0.230 m LVOT Mean Grad 1.9 mmHg AoV Mean Sherif. 0.85 m/s LVOT SV 58.55 mL AoV Mean Grad 3.3 mmHg LVOT Diam s 1.95 cm AoV Area (VTI) 2.55 cm2 AV Regurg Peak Gr. 6.15 mmHg Velocity Ratio 0.73 Mitral Valve MV DT 268 (160-240 msec) MV Vmax TIPS 0.69 m/s MV Mean Grad 0.9 (<2mmHg) MV VTI 0.228 m Pulmonary Valve PV Vmax 0.99 (0.5-1.5 m/s) RVOT Vmax 0.83 m/s PV Peak Grad 4.0 mmHg RVOT Peak Gr. 2.8 mmHg PV Mean Sherif 0.78 m/s RVOT VTI 0.173 m PV Mean Grad 2.7 mmHg RVOT Mean Gr. 1.7 mmHg Tricuspid Valve RA Pressure 3.00 mmHg TV S' 0.15 m/s
[2025-10-02 07:51] VITALS: BP 105/64; BP 106/62; BP 91/67; PULSE 68; PULSE 71; PULSE 79; RESP 16; TEMP 36.5; O2SAT 96
[2025-10-02] MEDS: Insulin Glargine 300 UNITS/3 ML PEN 23 UNITS SC (08:09)
[2025-10-02] MEDS: Insulin Aspart 300 UNITS/3 ML PEN SC ×4 (08:10→11:57)
--- NOTE | 2025-10-02 09:10 | PDOC.CMIN ---
Date of service: 10/02/25 Time of Service: 09:10 Care Management Initial Assmt Initial Assessment Reason for Hospitalization: Vomiting syncope Functional Status/Living Situation Patient Presentation: Chris was sitting up in his chair and awake when CM met with him. Town of Residence: [place] Resides with: Spouse (Pam) Advance Directives Advance Directives: Do you have an Advance Directive: N 06/17/25, 15:57 AD On File at [facility]: N 06/17/25, 15:57 Date Asked 10/01/25 10/01/25, 08:13 AD Date Reviewed COLST On File at [facility] COLST Date Scanned Code Status Resuscitation Status Full Code Care Team Visit Care Team Role Provider Type Latrell Lujan MD [facility] STAFF PHYSICIAN Freddy Gómez NP Primary Care Provider NURSE PRACTITIONER Marilou Mcdowell RDN, [facility] Other Providers QUALITY MANAGEMENT COORDINATOR Isma Morocho Other Providers OTHER Cedrick Aguilar RDN Other Providers QUALITY MANAGEMENT COORDINATOR Elvis Villar DO Family Provider [facility] STAFF PHYSICIAN Latrell Tsai MD Emergency Provider [facility] STAFF PHYSICIAN Ton Pan MD Admit Provider [facility] STAFF PHYSICIAN Attending Provider Social Determinants of Health Screening Social Determinants of health last assessed in clinic: 10/01/25 Will the Patient Participate in the Screening?: Yes Do you worry about having a steady place to live?: no Problems where you live: no known problems In the past 12 months, have you had to go without electric, gas, oil or water in your home?: no Has lack of transportation kept you from medical appointments or from doing things needed for daily living?: no Has anyone in your life made you feel unsafe or unsupported?: no How hard is it for you to pay for the very basics like food, housing, medical care, and heating? Would you say it is:: Not hard at all Do you want help finding or keeping work or a job?: I do not need or want help If for any reason you need help with day-to-day activities such as bathing, preparing meals, shopping, managing finances, etc., do you get the help you need?: I don?t need any help How often do you feel lonely or isolated from those around you?: Never Do you speak a language other than Andorran at home?: No Does the patient want assistance with any of the above?: No PFSH All Active Problems (Updated 10/01/25 @ 19:51 by Ton Pan MD) CAD (coronary artery disease) (Chronic) Nausea & vomiting (Acute) Syncope and collapse (Acute) Total blindness (Acute) Acute HFrEF (heart failure with reduced ejection fraction) (Acute) NSTEMI (non-ST elevated myocardial infarction) (Acute) Bilateral optic neuropathy (Acute) Hypertension (Chronic) Hyperlipidemia (Acute) Normal colonoscopy (Acute) Diabetes type I (Acute) Medical History Uses self-applied continuous glucose monitoring device (L) Upper Posterior arm Adhesive capsulitis of both shoulders Rotator cuff tear, right Surgical History History of colonoscopy (~11/18/21) History of release of tendon Left wrist Family History Mother , 87 Heart disease Father , 76 Diabetes Heart disease Hyperlipidemia Hypertension Sister No problems noted. Daughter No problems noted. Maternal Grandfather , 75 Stomach cancer Paternal Grandfather , 50 Diabetes Maternal Grandmother , 65 Breast cancer Paternal Grandmother , 93 Heart disease Social History (Updated 06/19/25 @ 14:39 by Enedina No) Smoking/Tobacco Use Status: Never Second Hand Exposure: No Smoking risk assessment performed?: Yes Alcohol Intake: current Alcohol Intake frequency: a few times a week Alcohol type: beer and hard liquor Drug use: Never Substance use type: does not use and other Adopted: No Caregiver/Support person: No Household members: significant other Housing: house Communication Needs: None Do you need help understanding health information?: Never Pets and animals: Yes Pets and animals: cat(s), dog(s) and horse(s) Sexually active: Yes Do you think of yourself as: straight/heterosexual Current gender identity: male What is your relationship status?: living with partner How often do you talk on the phone with friends or family?: three or more times per week How often do you get together with friends or relatives?: twice per week How often do you attend baptism or mormonism services?: 1-3 times per year Do you belong to any clubs or organized social groups?: no Panel score (0-1 are the most socially isolated patients): 2 What type of physical activity do you participate in: walking and weight lifting Duration: 60-90 minutes/day Frequency: daily Lenore/Gnosticist: Carlos Alberto Special lenore needs: No Agree to transfusion: No Seatbelt use: always Helmet use: Yes Helmet use: always Drive intox or ride w/intox tour bus driver/guide: No Do you feel safe at home: Yes Do you feel safe in your relationship?: Yes
[2025-10-02 11:09] VITALS: BP 97/58; PULSE 69; RESP 16; TEMP 36.5; O2SAT 95
--- NOTE | 2025-10-02 12:00 | W.NUTRFU ---
Date of service: 10/02/25 Time of Service: 12:04 Nutrition Note NOTE: Visited with Chris and partner/. Received nutrition consult request regarding diabetes ed/mgt. Chris with hx of type I diabetes. Admitted after syncope, nausea and vomiting with collapse with head strike per pt and has hx of CAD with NSTEMI in recent hx which resulted in blindness. Pt denies significant weight changes recently but weight hx show wt loss trend of 15-20kg over the last 3 years - pt states due to better glucose mgt with endocrinology (goes to [facility] for endo). Lives at home with partner who assists with meals. They use chart from endo outlining insulin corrections and carb coverage. Insulin sensitivity factor of 26 per partner. Glucose elevated on admission: mid to upper 200's early yesterday morning. 375 at breakfast and 224 at lunch today (CGM reading 260 at our visit prior to lunch). Chris feels this should be lower considering 12 units given at breakfast. He is currently getting his home basal insulin dose of 23units AM and also ordered for 12 units per meal along with sliding scale. Chris still somewhat nauseated but eating. Denies significant concerns with his nutrition. Would suggest titrating basal insulin higher according to fasting glucose levels - pt already received 51units novolog so far today and should be closer to 50/50 with fast-acting and basal insulin ratios. Will monitor glucose trends closely today and continue to make suggestions with insulin mgt. Time Spent in Nutritional Counseling and Treatment: 10 min
--- NOTE | 2025-10-02 12:53 | PT.INNT ---
PT Notes Visit Reasons: Vomiting Syncope Dr Le ross with discharging PT order. Patient discharges home today.
--- NOTE | 2025-10-02 14:12 | DSE_ITS ---
Date of service: 10/02/25 Time of Service: 14:12 DS: Diagnosis Discharge Diagnosis (1) Syncope and collapse: Status: Acute (2) Nausea & vomiting: Status: Acute (3) Diabetes type I: Status: Acute (4) CAD (coronary artery disease): Status: Chronic Discharge Plan Disposition Patient Disposition: Home Condition: Stable Discharge Details Reason For Visit: Vomiting Syncope Admit Date/Time: 10/01/25 15:04 Admit Provider: Ton Pan Attending Provider: Ton Pan Primary Care Provider: Freddy Gómez Hospital Course Hospital Course: 64 yo M with history of type 1 DM, CAD s/p PCI/stent who presented after an episode of syncope after vomiting. 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 His 3 EKGs and troponins did not show signs of cardiac injury. He was monitored on telemetry and did not have any events. On 10/02 he had repeat echocardiogram that showed preserved LVEF of 55% and no other new findings. His orthostatis BPs did show a drop in SBP of close to 15 mmHg, not meeting threshold for orthostatic hypotension but given this his metoprolol was cut to 12.5mg along with 12.5mg of losartan and 25mg Eplereonone. The case was reviewed on the phone with Dr. Nolan, his product applications engineer from [facility]. He should follow up with his PCP in 1-2 weeks and his product applications engineer as planned. Home Meds and New Rx's Prescriptions: Continued multivitamin [Multiple Vitamins] Tablet 1 tab PO DAILY (DME) pen needle, diabetic [Comfort EZ Pen [place]] 31 gauge x 1/4 needle See Rx Instructions .Route Qty: 100 6RF Rx Instructions: Injection 4-6x daily as directed (DME) Dexcom G7 Sensor Device See Rx Instructions .Route Qty: 1 12RF Rx Instructions: As directed polyethylene glycol 3350(bulk) [Base B,Polyethylene [id number]] Granules 1 grnl miscellaneous DAILY insulin lispro 100 unit/mL insulin pen 1 sliding scale dose subcut TIDWMEAL aspirin 81 mg tablet,delayed release (DR/EC) 81 mg PO DAILY (DME) pen needle, diabetic [Comfort EZ Pen [place]] 31 gauge x 1/4 needle See Rx Instructions .ROUTE .MEDSUPPLY Qty: 100 4RF Rx Instructions: Six times daily (DME) Dexcom G7 Sensor Device See Rx Instructions .Route Qty: 3 12RF Rx Instructions: Apply to rear tricep as directed Brilinta 90 mg tablet 90 mg PO BID atorvastatin [Lipitor] 40 mg tablet 40 mg PO DAILY (DME) Blood Glucose Test Strip See Rx Instructions .Route Rx Instructions: Test 4 times daily glucagon 1 mg/0.2 mL auto-injector 1 mg subcut ONCE Rx Instructions: as a single dose; may repeat once after 15 minutes if no response glucagon 3 mg/actuation spray,non-aerosol 3 mg intranasal ONCE Rx Instructions: as a single dose may repeat in 15 minutes if severe hypoglycemia persists (DME) lancets Misc See Rx Instructions .Route Rx Instructions: As directed One Touch Verio (DME) Ketone Urine Test Strip See Rx Instructions .Route Rx Instructions: As directed nitroglycerin 0.4 mg tablet, sublingual 0.4 mg sublingual Q5M PRN Rx Instructions: call 911 if chest pain not relived after 3 doses (DME) Dexcom G7 Sensor Device See Rx Instructions .Route Qty: 3 12RF Rx Instructions: Place sensor on arm as directed (DME) Dexcom G7 Brand Specialist Misc See Rx Instructions .Route Qty: 1 3RF Rx Instructions: As directed eplerenone 25 mg tablet 25 mg PO ONCE esomeprazole magnesium 20 mg capsule,delayed release(DR/EC) 20 mg PO DAILY insulin glargine [Lantus Solostar U-100 Insulin] 100 unit/mL (3 mL) insulin pen 23 unit subcut QAM Changed losartan 25 mg tablet 12.5 mg PO DAILY Qty: 45 0RF Rx Instructions: take 1/2 tab daily furosemide 20 mg tablet 20 mg PO DAILY PRN (Reason: Edema) Qty: 0 0RF metoprolol succinate 25 mg tablet extended release 24 hr 12.5 mg PO HS Qty: 45 0RF Discontinued hydrochlorothiazide 25 mg tablet 25 mg PO DAILY Patient Comments: TAKE 1 TABLET BY MOUTH DAILY Discharge Instructions Additional Instructions: Your echocardiogram showed good cardiac function. The blood tests and EKGs did NOT show any cardiac damage. Your blood pressure runs a little low, which can increase the risk of passing out. You should cut the metoprolol in half to 12.5mg along with the 1/2 tablet of losartan and 25mg of eplerenone. You should continue to take the furosemide (water pill) only as needed. You were not on hydrochlorothiazide. Stand Alone Forms: Portal Information Activity:: Activity as Tolerated Equipment/Supplies:: No Equipment Needed Diet:: As Tolerated Discharge Orders Discharge Orders: Discharge Order (Routine); Ordered 10/02/25 Ordered By: Latrell Lujan DS: Summary Time Spent with Patient providing and/or coordinating discharge services: Greater than 30 minutes Status at Discharge Functional status at discharge: independent ambulation Overall status at discharge: patient is back to baseline Mental Status: mental status grossly normal Speech and Movement: speech and movement normal Mood: congruent mood Affect: normal affect Exam Narrative Exam Narrative: General: This is a pleasant man in no distress HEENT: Normocephalic, atraumatic. Blind with corrective sunglasses. CV: RRR, no edema Resp: CTAB Abd: soft, NTND MSK: voluntary motion x4 Neuro: awake, alert, no focal deficits Psych Mental Status: mental status grossly normal Speech and Movement: speech and movement normal Mood: congruent mood Affect: normal affect DS: Data Vitals/I&O Vitals and I&O: Vital Signs Temperature 36.5 C 10/02/25 11:09 Temperature Source Temporal Artery Scan 10/02/25 11:09 Pulse 69 10/02/25 11:09 Pulse 86 10/01/25 15:20 Respiratory Rate 16 10/02/25 11:09 Respiratory Effort Normal 10/01/25 16:10 Respiratory Depth Normal 10/01/25 16:10 Respiratory Pattern Normal 10/01/25 16:10 Blood Pressure 97/58 L 10/02/25 11:09 Blood Pressure Mean 71 10/02/25 11:09 Pulse Oximetry 95 10/02/25 11:09 Oxygen Delivery Method Room Air 10/02/25 11:09 Oxygen Flow Rate 0 10/02/25 11:09 Pain Level 0 10/02/25 11:09 Comment The Pt was sleeping. Pt refused Vitals. The vitals are Q4 while awake. I notified the nurse on duty. 10/02/25 03:10 Intake & Output 10/01/25 10/02/25 10/02/25 23:59 11:59 23:59 Intake Total 552 / 552 Output Total 590 / 590 600 / 600 Balance -38 / -38 -600 / -600 Weight 81.6 kg Intake: IV 552 / 552 Output: Urine 590 / 590 600 / 600 Other: Urine Color Light Kandace Yellow Urine Appearance Clear Clear Urine Odor Strong Normal Data Completed and Pending Pending Labs at Discharge: 10/01/25 10/01/25 10/01/25 04:41 06:32 08:50 WBC 11.16 H RBC 5.31 Hgb 15.3 Hct 46.3 MCV 87 MCH 28.8 MCHC 33.0 RDW 13.2 Plt Count 221 MPV 10.3 Immature Gran % 0.4 Neutrophils % 91.7 Lymphocytes % 3.4 Monocytes % 3.0 Eosinophils % 1.3 Basophils % 0.2 Absolute Neutrophils 10.24 H Absolute Lymphocytes 0.38 L Absolute Monocytes 0.33 Absolute Eosinophils 0.15 Absolute Basophils 0.02 PT 9.8 INR 1.0 APTT 19.5 L Sodium 139 Potassium 4.2 Chloride 102 Carbon Dioxide 24.0 Anion Gap 13 H BUN 21 Creatinine 1.03 Est GFR (CKD-EPI 2020) 82.13 Glucose 257 H Calcium 9.3 Magnesium 1.7 Troponin I 15 15 9 Lipase 61 H COVID-19 Source SARS-CoV-2 (PCR) Influenza Type A (PCR) Influenza Type B (PCR) RSV (PCR) 10/01/25 15:21 WBC RBC Hgb Hct MCV MCH MCHC RDW Plt Count MPV Immature Gran % Neutrophils % Lymphocytes % Monocytes % Eosinophils % Basophils % Absolute Neutrophils Absolute Lymphocytes Absolute Monocytes Absolute Eosinophils Absolute Basophils PT INR APTT Sodium Potassium Chloride Carbon Dioxide Anion Gap BUN Creatinine Est GFR (CKD-EPI 2020) Glucose Calcium Magnesium Troponin I Lipase COVID-19 Source Nasopharynx SARS-CoV-2 (PCR) Negative Influenza Type A (PCR) Negative Influenza Type B (PCR) Negative RSV (PCR) Negative PFSH All Active Problems (Updated 10/02/25 @ 13:37 by Latrell Lujan) CAD (coronary artery disease) (Chronic) Nausea & vomiting (Acute) Syncope and collapse (Acute) Total blindness (Acute) Acute HFrEF (heart failure with reduced ejection fraction) (Acute) NSTEMI (non-ST elevated myocardial infarction) (Acute) Bilateral optic neuropathy (Acute) Normal colonoscopy (Acute) Hyperlipidemia (Acute) Hypertension (Chronic) Diabetes type I (Acute) Medical History Uses self-applied continuous glucose monitoring device (L) Upper Posterior arm Adhesive capsulitis of both shoulders Rotator cuff tear, right Surgical History History of colonoscopy (~11/18/21) History of release of tendon Left wrist Family History Mother , 87 Heart disease Father , 76 Diabetes Heart disease Hyperlipidemia Hypertension Sister No problems noted. Daughter No problems noted. Maternal Grandfather , 75 Stomach cancer Paternal Grandfather , 50 Diabetes Maternal Grandmother , 65 Breast cancer Paternal Grandmother , 93 Heart disease Social History (Updated 06/19/25 @ 14:39 by Enedina No) Smoking/Tobacco Use Status: Never Second Hand Exposure: No Smoking risk assessment performed?: Yes Alcohol Intake: current Alcohol Intake frequency: a few times a week Alcohol type: beer and hard liquor Drug use: Never Substance use type: does not use and other Adopted: No Caregiver/Support person: No Household members: significant other Housing: house Communication Needs: None Do you need help understanding health information?: Never Pets and animals: Yes Pets and animals: cat(s), dog(s) and horse(s) Sexually active: Yes Do you think of yourself as: straight/heterosexual Current gender identity: male What is your relationship status?: living with partner How often do you talk on the phone with friends or family?: three or more times per week How often do you get together with friends or relatives?: twice per week How often do you attend caodaism or jehovah's witness services?: 1-3 times per year Do you belong to any clubs or organized social groups?: no Panel score (0-1 are the most socially isolated patients): 2 What type of physical activity do you participate in: walking and weight lifting Duration: 60-90 minutes/day Frequency: daily Lenore/Jain: Latter-Day Special lenore needs: No Agree to transfusion: No Seatbelt use: always Helmet use: Yes Helmet use: always 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
--- NOTE | 2025-10-02 14:15 | PDOC.CMDIS ---
Date of service: 10/02/25 Time of Service: 14:15 LACE Index Scoring Tool Questions: Length of Stay (in days): 1 Was the patient admitted via the E.D.?: Yes Comorbidities: Diabetes w/o Complication E.D. Visits: 1 Answers: Total Score: 6 Risk of Readmission: Low Risk Care Management Discharge Plan Reason for Hospitalization: vomiting, syncope Discharge Plan: Chris will be discharged home with no new services today. It is recommended he follow up with his community providers and discharge plan of care. He will be transported in a private vehicle by his daughter. Patient/Family Education Needs: Review of discharge instructions, activity, limitations, and plan of care. Discuss ask me three.
== END 2025-10-02 15:33 | disposition home or self-care (01) ==
LOC: ER 11:28 → MS 16:01
PROVIDERS: Admitting Provider Family Medicine; Emergency Provider Emergency Medicine; Family Provider Student in an Organized Health Care Education/Training Program; PCP Nurse Practitioner Family; Responsible Provider Family Medicine; Visit Provider Family Medicine
DX: R55 Syncope and collapse (principal); R11.2 Nausea with vomiting, unspecified; I25.10 Atherosclerotic heart disease of native coronary artery without angina pectoris; E10.9 Type 1 diabetes mellitus without complications; W19.XXXA Unspecified fall, initial encounter; I25.2 Old myocardial infarction; Z95.5 Presence of coronary angioplasty implant and graft; K21.9 Gastro-esophageal reflux disease without esophagitis; I10 Essential (primary) hypertension; E78.5 Hyperlipidemia, unspecified; Z79.899 Other long term (current) drug therapy; H54.3 Unqualified visual loss, both eyes
CPT/HCPCS: 00123; 36415; 36416; 80048; 82962; 83690; 87637; 93005; 96365; 99285; 70450; 71045; 72125; 83735; 84484; 85025; 85610; 85730; 93010; 93306; 99222; 99238; G0378; J1815; J2405; J2765

== ENCOUNTER 2025-10-14 11:00 | Outpatient (RCR) | payer SELFPAY ==
[2025-09-16 15:09] VITALS: BP 125/69; PULSE 76
[2025-09-18 15:00] VITALS: BP 117/63; PULSE 70; O2SAT 96
[2025-10-09 15:09] VITALS: BP 126/72; PULSE 68
[2025-10-14 11:13] VITALS: BP 122/66; PULSE 76
== END 2025-10-14 23:59 | disposition home or self-care (01) ==
LOC: CR 11:00
PROVIDERS: PCP Nurse Practitioner Family; Visit Provider Internal Medicine Cardiovascular Disease
DX: R69 Illness, unspecified (principal)